=== PATIENT | female | born 1940 | race Caucasian/White ===

== ENCOUNTER 2022-09-10 16:03 | Outpatient (REF) | payer MEDICARE, SELFPAY ==
[2022-09-10 19:00] LABS: Bilirubin Negative (Negative); Blood Trace-intact (Negative); Clarity Clear (Clear); Glucose Negative (Negative); Ketones Negative (Negative); Leukocyte Esterase Small (Negative); Nitrite Negative (Negative); Urobilinogen 0.2 EU/dL (Up TO 0.2); pH 5.5 (5-8)
[2022-09-10 19:07] LABS: Bacteria Negative HPF (Negative); C & S Indicated? No; Casts Negative LPF (Negative); Crystals Negative HPF (Negative); Epithelial Cells Rare HPF (Negative); Mucus Negative (Negative); Other Cells Negative (Negative); WBC 0-2 HPF (0-5)
== END 2022-09-10 16:04 | disposition home or self-care (01) ==
LOC: NCHCN 16:03
PROVIDERS: PCP Physician Assistant; Visit Provider Internal Medicine
DX: N17.9 Acute kidney failure, unspecified (principal)
CPT/HCPCS: 81003; 81015

== ENCOUNTER 2022-10-08 17:29 | Outpatient (REF) | payer MEDICARE, SELFPAY ==
[2022-10-08 19:30] LABS: Bilirubin Negative (Negative); Blood Large (Negative); Clarity Cloudy (Clear); Glucose Negative (Negative); Ketones Negative (Negative); Leukocyte Esterase Large (Negative); Nitrite Positive (Negative); Urobilinogen 0.2 mg/dL (Up to 0.2)
[2022-10-08 19:43] LABS: C & S Indicated? C&S Done As Ordered; WBC >50 HPF (0-5)
== END 2022-10-08 17:30 | disposition home or self-care (01) ==
LOC: NCHCN 17:29
PROVIDERS: PCP Physician Assistant; Visit Provider Nurse Practitioner Family
DX: R30.0 Dysuria (principal)
CPT/HCPCS: 87077; 81003; 81015; 87086; 87186

== ENCOUNTER 2022-10-10 09:34 | Outpatient (REF) | payer MEDICARE, SELFPAY ==
[2022-10-10 09:16] LABS: Abs Immature Grans 0.07 10^3/uL (0.0-0.06); Absolute Basophil Count 0.06 10^3/uL (0.0-0.2); Absolute Eosinophil Count 0.33 10^3/uL (0.0-0.7); Absolute Lymphocyte Count 1.07 10^3/uL (1.2-3.4); Absolute Monocyte Count 0.98 10^3/uL (0.1-0.8); Absolute Neutrophil Count 7.62 10^3/uL (1.2-6.7); Basophils % 0.6; Eosinophils % 3.3; HCT 28.1 % (36.0-46.0); Immature Grans % 0.7; Lymphocytes % 10.6; MCV 94 fL (80-95); MPV 10.2 fL (8.0-11.0); Monocytes % 9.7; Neutrophils % 75.1; Platelet Count 242 10^3/uL (130-400); RDW 16.8 % (11.7-14.6); RDW-SD 53.4 fL; WBC 10.13 10^3/uL (4.4-10.8)
[2022-10-10 09:30] LABS: ALT 26 U/L (14-59); AST 25 U/L (15-37); Albumin 2.9 g/dL (3.4-5.0); Alkaline Phosphatase 164 U/L (46-116); Anion Gap 7.7 mmol/L (3-11); BUN 16 mg/dL (7-18); Bilirubin, Total 0.4 mg/dL (0.2-1.0); CO2 27.3 mmol/L (21.0-32.0); CREATININE 0.9 mg/dL (0.55-1.02); Calcium 9.1 mg/dL (8.5-10.1); Chloride 106 mmol/L (98-107); Estimated GFR 63.43 (mL/min/1.73m2); Glucose 117 mg/dL (74-106); Magnesium 1.8 mg/dL (1.8-2.4); PHOSPHORUS 3.4 mg/dL (2.6-4.7); Potassium 4.1 mmol/L (3.5-5.1); Sodium 141 mmol/L (136-145); Total Protein 5.9 g/dL (6.4-8.2); Uric Acid 3.7 mg/dL (2.6-6.0)
[2022-10-10 10:25] LABS: LDH 324 U/L (81-234)
== END 2022-10-10 09:35 | disposition home or self-care (01) ==
LOC: LBN 09:34
PROVIDERS: PCP Physician Assistant; Visit Provider Internal Medicine Hematology & Oncology
DX: C82.3 Follicular lymphoma grade IIIa (principal)
CPT/HCPCS: 80053; 83615; 83735; 84100; 84550; 85025

== ENCOUNTER 2022-10-15 04:40 | Emergency (ER) | payer MEDICARE, SELFPAY ==
[2022-10-15] VITALS (223 sets, daily range): BP systolic 71–152; BP diastolic 35–116; PULSE 50–148; RESP 14–53; TEMP 37.1–40; O2SAT 68–100
--- NOTE | 2022-10-15 04:45 | RT.EKG_ITS ---
APPROVED REPORT Exam: Resting ECG Reason for Exam: chest pain Patient Location: E HR:101 bpm ECG Measurements Heart Rate 101 AXIS GA 141 P 14 QRSd 139 QRS -66 QT 362 T 18 QTc 469 Conclusion Fast sinus arrhythmia...V-rate 86-123, mean> 99 RBBB and LAFB...QRSd >120mS, axis(-40,240) Right bundle branch block and a rate of 101 with left axis deviation?bifascicular block. No ST segment abnormalities. Baseline difficult to interpret in V4 and V5. T wave inversion in V3. Alexis red to prior dated last month in the [facility] [place] [place] medical record no acute injury pattern.
--- NOTE | 2022-10-15 04:46 | W.ED.GENAD ---
Discharge Plan Discharge Details Chief Complaint: Chest Pain Clinical Impression: Myalgia, Chest pain, unspecified, Acute UTI Primary Care Provider: Evan Skelton ED Provider: Charles Tinoco Medical Decision Making In this chronically ill patient with follicular lymphoma I am concerned for progression of her known intraperitoneal mass versus progression of her known carcinomatosis versus pulmonary embolism versus ACS. Her ECG is nonischemic. She has had no fevers to suggest neutropenic fever and she is not hypotensive nor tachycardic at the moment so we will defer antibiotics, cultures, and lactate. Given patient's right lower quadrant tenderness appendicitis is also in the differential. No reported recent trauma however the patient is certainly at increased risk for pathological fracture given history of malignancy. Given no fever and no rebound nor guarding on abdominal exam I am not concerned for spontaneous bacterial peritonitis although the patient certainly could have ascites given known malignancy. Will attempt to obtain urinalysis from nephrostomy tubes given reported recent diagnosis of urinary tract infection. Her ECG is not low voltage to suggest tamponade. Chest wall site appears to be healing well with no signs of infection. Similarly nephrostomy sites nontender. Will treat nausea with ondansetron and pain with low-dose fentanyl. Will provide patient with a 250 cc bolus as she had a reassuring EF last with that at [facility] [place]. She has no rash on her abdomen to suggest zoster. Given that she has chest and abdominal discomfort my suspicion is low for ovarian torsion although CT will be useful to assess the extent of her unknown retroperitoneal mass. Given her history of Rituxan reaction I considered Ling-Toney's and TEM however the patient had no macular rash nor any obvious bullae nor mucosal involvement. On CT scan performed last month patient had no cholelithiasis. If patient has no acute abnormalities on her CT scan we will consider right upper quadrant formal ultrasound to assess for acalculous cholecystitis. No pain out of proportion to suggest necrotizing soft tissue infection. Given recent chemotherapy will assess LDH and uric acid levels to evaluate for tumor lysis syndrome.Also in the differential is hypercalcemia of malignancy. She does not appear plethoric to suggest SVC syndrome. 6:30 AM CBC is significant for leukopenia with white blood cell count of 1.51K, normocytic anemia slightly worse compared to prior with hemoglobin of 8.6 and new thrombocytopenia with platelets of 97 K. Urinalysis showing positive nitrites. LDH elevated but slightly improved compared to prior from last week. Normal uric acid. No MILKA. No hypercalcium. 7 AM Patient had nitrite positive urinalysis. She reported last week that she had had symptoms of dysuria and frequency when she had a positive urinalysis performed at [facility]. Given her immunocompromise state will treat her with ceftriaxone at 2 g. We will also check a lactate and draw 2 sets of blood cultures and sign patient out to the oncoming daytime provider. I have asked health director community health nursing Pippa to attempt to obtain urine culture results from [facility]. 7:15 AM Patient was recently treated with Macrobid. I met with the patient after she required an additional dose of fentanyl for analgesia. Given that she is requiring multiple rounds of parenteral medications for pain I told the patient and her family that I anticipate that she would likely require hospitalization. At the moment there are not beds available. Patient has been hospitalized and has received care in the past at [facility]. I also advised the patient that if her CT was reassuring against any acute processes and if her pain was able to be controlled on oral medications it would not be unreasonable to discharge her home with outpatient heme-onc follow-up. We will defer this ultimate disposition [facility], Dr. Esposito, pending his reassessment after my signout. Chronic conditions affecting the care of the patient: Lymphoma History obtained from an outside historian: Additional history from the patient's daughter External record review: Chart review at [facility] [place] Diagnostic interpretations performed by me: [Per my independent interpretation EKG shows:] Right bundle branch block and a rate of 101 with left axis deviation??bifascicular block. No ST segment abnormalities. Baseline difficult to interpret in V4 and V5. T wave inversion in V3. Compared to prior dated last month in the [facility] [place] [facility] medical record no acute injury pattern. Medications: Fentanyl and ondansetron Social determinants of health affecting disposition: N/A Management discussed with: Oncoming daytime ED provider Treatment/interventions considered: Initial broad-spectrum antibiotics deferred based on vital signs Response to therapies provided: Improved pain and nausea status post fentanyl and ondansetron HPI General Date/Time Provider Initiated Documentation: 10/15/22 04:45. HPI Narrative: This is an 81-year-old female with a history of follicular lymphoma. Per hematology notes patient has bulky disease with large retroperitoneal mass, ureteral obstruction hydro and carcinomatosis. She completed a mini cycle of R CHOP last month while inpatient. She had nephrostomy stents placed in the setting of hydronephrosis. She had escalating doses of RCHOP on 10/10 and 10/11. She reportedly tolerated these and felt well earlier in the day yesterday. This evening however she began having pain in her chest and in the right side of her abdomen. This began at 11 PM. She reported that she had some nausea cough and some shortness of breath. She takes senna and has had 3 episodes of diarrhea today. She said that she had an adverse reaction to Rituxan for which subsequent infusions were slowed. She lives in [place]. She receives care at [facility]. She has never had a PE nor DVT. She was originally diagnosed with follicular lymphoma 10 weeks ago. She had a urinary tract infection last week that was treated with antibiotics. She cannot recall the name of the antibiotics. She quit smoking 45 years ago. PFSH All Active Problems (Updated 10/15/22 @ 07:26 by Charles Tinoco MD) Myalgia (Acute) Chest pain, unspecified (Acute) Acute UTI (Acute) Social History Smoking/Tobacco Use Status: Former Tobacco Use Smoking risk assessment performed?: Yes Substance use type: does not use Exam Narrative Exam Narrative: General: Chronically ill-appearing in no acute distress speaking in complete sentences. Head: Normocephalic, atraumatic Ear, nose, mouth, throat: Grossly normal inspection. Normal voice, handling secretions normally. Neck: Trachea midline. Cardiovascular: Well-perfused distal extremities. Systolic ejection murmur left sternal border. Chest wall: Port site appears to be healing well. Respiratory: Nonlabored respiration. Clear lungs bilaterally. Gastrointestinal: Nondistended abdomen. Generalized abdominal tenderness right greater than left primarily in the lower quadrant. No rebound. No guarding. Nontender bilateral nephrostomy tubes draining clear yellow urine. Musculoskeletal: No edema. Moving all 4 extremities spontaneously. Skin: Mildly jaundiced appearing. No acute rash. Neurologic: Alert and appropriate, no apparent acute deficits. Psychiatric: Mood and manner are appropriate. Grooming and personal hygiene are appropriate.
--- NOTE | 2022-10-15 05:21 | DI.CT_ITS ---
Exam(s) CT CHEST PE ABD PELVIS W EXAM: CT CHEST PE ABD PELVIS W CLINICAL HISTORY: Shortness of breath chest pain. TECHNIQUE: Imaging Protocol: Axial CT angiography was performed with multi-slice acquisition and mu lti-planar and/or 3D reconstructions. CONTRAST MATERIAL: Intravenous: Omnipaque 350contrast volume:100 mL COMPARISON: No exams were available for comparison FINDINGS: The examination is limited due to patient motion artifact. CHEST: Tracheobronchial tree: Patent where visualized. Pulmonary parenchyma: There are small bilateral pleural effusions, right greater than left with subja cent infiltrates which may represent atelectasis or pneumonia. No architectural distortion. Pulmonary Arteries: No evidence of filling defect to suggest pulmonary emboli. Mediastinum and Dorie: No dominant adenopathy or fluid collection. The esophagus is unremarkable. Visualized thyroid gland: Unremarkable. Pleura: No pneumothorax. Heart: The heart is not dilated. No coronary artery calcifications are seen. No pericardial effusion. Aorta: The ascending thoracic aorta measures 4.2 x 3.8 cm. No evidence of dissection. Atheroscleros is is present. Bones: Within normal limits for the patient's age. Soft tissues: Unremarkable. Tubes, Catheters, and Lines: There is a Port-A-Cath in place. ABDOMEN: Liver: Normal density. Simple cysts are seen in the left and right lobes of the liver. No suspicious hepatic masses are seen. Portal, Superior Mesenteric, and Splenic Veins: Unremarkable. Gallbladder and Biliary Tract: No radiodense calculus or dilation. Pancreas: Normal density, no abnormal calcifications or inflammatory process. Spleen: Normal. Adrenals: No masses seen. Kidneys: Normal size, contour and axis. No radiodense stones or obstructive uropathy. There is a 0.7 cm simple cyst in the right kidney. No follow-up is recommended. There are bilateral nephrostomy tu bes. No hydronephrosis. Abdominal Aorta: Abdominal portion non-dilated. Atherosclerosis is present. Bowel: There is diverticulosis in the colon but no evidence of acute diverticulitis. There is no laury dence of bowel obstruction. No evidence of appendicitis is present. Peritoneal Cavity: There is marked soft tissue in the retroperitoneum beginning at the level of the r enal arteries and extending into the pelvis. There is soft tissue seen in the mesentery. The findin gs are suspicious for adenopathy. The soft tissue encircles the aorta and IVC and appears to encase the ureters bilaterally. No free air. Perihepatic, perisplenic and pelvic ascites is present. Lymph Nodes: Please see the above discussion under peritoneal cavity. Bones: Within normal limits for the patient's age. There is a right convex lumbar scoliosis. Soft Tissues: Unremarkable. PELVIS: Bladder: Symmetric distention, no gross wall thickening. Reproductive Organs: Unremarkable as visualized. Lymph Nodes: Within normal limits. Bones: Within normal limits. IMPRESSION: 1. No evidence of a pulmonary embolus. 2. Ascending thoracic aortic aneurysm. 3. Bilateral pleural effusions and subjacent infiltrates which may represent atelectasis or pneumonia . 4. Retroperitoneal, pelvic and mesenteric soft tissue likely reflecting adenopathy. Lymphoma should be considered. Please correlate with patient's clinical history. 5. Abdominal pelvic ascites. 6. Bilateral nephrostomy tubes. RADIATION DOSE DELIVERED: 1,111.9mGy.cm Total DLP 1,111.9mGy.cm Total DLP DATA REPOSITORY: All CT scans at this facility are submitted to the National Radiology Data Registry (NRDR) Dose Index Registry (DIR) with the [employer] ([employer]). RADIATION OPTIMIZATION: All CT scans at this facility use at least one of these dose optimization te chniques: automated exposure control; mA and/or kV adjustment per patient size (includes targeted exa ms where dose is matched to clinical indication); or iterative reconstruction.
--- NOTE | 2022-10-15 05:22 | NUR.NOTE ---
Nursing Note: pt states she is allergic to something but doesn't know the name. Pt does not know what medications she is currently on and does not have a list.
[2022-10-15] MEDS: Ondansetron 4 MG/2 ML VIAL IVP (05:44)
[2022-10-15] MEDS: fentaNYL 100 MCG/2 ML VIAL 25 MCG IVP ×2 (05:44→06:58)
[2022-10-15 05:48] LABS: HCT 26.4 % (36.0-46.0); HGB 8.6 g/dL (11.2-15.7); MCH 30.3 pg (27.0-33.0); MCHC 32.6 % (32.0-36.0); MCV 93 fL (80-95); MPV 10.6 fL (8.0-11.0); RBC 2.84 10^6/uL (3.93-5.22); RDW 17.6 % (11.7-14.6); RDW-SD 58.9 fL
[2022-10-15] MEDS: Normal Saline 500 ML 250 ML IV (05:55)
[2022-10-15 06:15] LABS: WBC 1.51 10^3/uL (4.4-10.8)
[2022-10-15 06:22] LABS: Bilirubin Negative (Negative); Blood Large (Negative); Clarity Sl Cloudy (Clear); Glucose Negative (Negative); Ketones Negative (Negative); Leukocyte Esterase Small (Negative); Nitrite Positive (Negative); Urobilinogen 0.2 mg/dL (Up to 0.2); pH 7.5 (5-8)
[2022-10-15 06:25] LABS: ALT 138 U/L (14-59); AST 69 U/L (15-37); Albumin 2.8 g/dL (3.4-5.0); Alkaline Phosphatase 186 U/L (46-116); Anion Gap 10.4 mmol/L (3-11); BUN 26 mg/dL (7-18); CO2 25.6 mmol/L (21.0-32.0); CREATININE 0.9 mg/dL (0.55-1.02); Calcium 8.5 mg/dL (8.5-10.1); Chloride 104 mmol/L (98-107); Estimated GFR 63.43 (mL/min/1.73m2); Glucose 121 mg/dL (74-106); LDH 253 U/L (81-234); Potassium 3.5 mmol/L (3.5-5.1); Sodium 140 mmol/L (136-145); Total Protein 5.4 g/dL (6.4-8.2); Uric Acid 2.9 mg/dL (2.6-6.0)
[2022-10-15 06:27] LABS: Platelet Count 97 10^3/uL (130-400)
[2022-10-15 06:28] LABS: Troponin I < 50 ng/L (<or=60)
[2022-10-15 06:30] LABS: Bacteria Moderate HPF (Negative); C & S Indicated? Yes; Casts Negative LPF (Negative); Crystals Negative HPF (Negative); Epithelial Cells Few HPF (Negative); Mucus Moderate (Negative); RBC 20-50 HPF (0-2)
[2022-10-15] MEDS: Omnipaque 350 MG/ML 100 ML BTL IJ (06:37)
[2022-10-15] MEDS: Normal Saline - Diluent 50 ML VIAL IJ (06:39)
--- NOTE | 2022-10-15 07:33 | DI.VRAD_ITS ---
PROCEDURE INFORMATION: Exam: CTA Chest With Contrast Exam date and time: 10/15/2022 6:38 AM Age: 82 years old Clinical indication: Abdominal pain; Localized; Right upper quadrant (ruq); Shortness of breath; On breathing; Patient HX: Patient has power port used for injection. Diagnosed with lymphoma TECHNIQUE: Imaging protocol: Computed tomographic angiography of the chest with contrast. 3D rendering (Not supervised by radiologist): MIP and/or 3D reconstructed images were created by the technologist. Radiation optimization: All CT scans at this facility use at least one of these dose optimization techniques: automated exposure control; mA and/or kV adjustment per patient size (includes targeted exams where dose is matched to clinical indication); or iterative reconstruction. Contrast material: OMNIPAQUE 350; Contrast volume: 100 ml; Contrast route: INTRAVENOUS (IV); COMPARISON: No relevant prior studies available. FINDINGS: Limitations: Motion artifact degrades image quality. Tubes, catheters and devices: Right chest wall port catheter. Pulmonary arteries: No pulmonary embolus is appreciated. Aorta: 4.3 cm ascending aortic aneurysm. Arterial calcifications. Lungs: Atelectasis/scarring at the lung bases. Pleural spaces: Moderate right pleural effusion. Trace left pleural effusion. Heart: No pericardial effusion. Lymph nodes: Mediastinal lymphadenopathy. Bones/joints: No acute pertinent abnormality seen. Soft tissues: No acute pertinent abnormality seen. IMPRESSION: 1. Pleural effusions. 2. Ascending aortic aneurysm. 3. Nonacute findings as outlined above. 4. Additional studies dictated separately. PROCEDURE INFORMATION: Exam: CT Abdomen And Pelvis With Contrast Exam date and time: 10/15/2022 6:38 AM Age: 82 years old Clinical indication: Abdominal pain; Localized; Right upper quadrant (ruq); Shortness of breath; On breathing; Patient HX: Patient has power port used for injection. Diagnosed with lymphoma TECHNIQUE: Imaging protocol: Computed tomography of the abdomen and pelvis with contrast. Radiation optimization: All CT scans at this facility use at least one of these dose optimization techniques: automated exposure control; mA and/or kV adjustment per patient size (includes targeted exams where dose is matched to clinical indication); or iterative reconstruction. Contrast material: OMNIPAQUE 350; Contrast route: INTRAVENOUS (IV); COMPARISON: No relevant prior studies available. FINDINGS: Tubes, catheters and devices: Bilateral percutaneous nephrostomies. Lungs: CT scan of the chest dictated separately. Liver: 1.5 cm hypodense lesion in the left hepatic lobe and 7 mm lesion in the right hepatic lobe, indeterminate on this examination. Consider nonemergent follow-up. Mild periportal edema, nonspecific. Additional hypodensities in the liver too small to characterize on CT. Gallbladder and bile ducts: No radiodense gallbladder calculi seen. Pancreas: Stranding in the peripancreatic fat. Spleen: No splenomegaly. Adrenal glands: Adrenal thickening bilaterally. Kidneys and ureters: Low attenuation lesion in the right kidney too small to accurately characterize on CT. No hydronephrosis. Areas of faintly decreased enhancement in both kidneys. Stomach and bowel: No intestinal obstruction is evident. Colonic diverticulosis. Evaluation for diverticulitis limited due to adjacent fluid. Appendix: No evidence of appendicitis. Intraperitoneal space: Moderate free fluid in the abdomen and pelvis. Extensive abnormal soft tissue density in the mesentery, likely reflecting neoplastic involvement. Vasculature: Arterial calcifications. Lymph nodes: Confluent masslike soft tissue density in the retroperitoneum and extending into the pelvis, likely lymphadenopathy and/or neoplasm. Nonspecific mesenteric lymph nodes. Urinary bladder: Urinary bladder appears mildly thickened, but commensurate with incomplete distension. Reproductive: No acute findings. Bones/joints: No pertinent acute abnormality seen. Soft tissues: No pertinent acute abnormality seen. IMPRESSION: 1. Retroperitoneal and pelvic masslike soft tissue density consistent with patient's known lymphoma. 2. Moderate ascites. 3. Linear areas of faintly decreased enhancement in both kidneys, most likely technical but cannot exclude pyelonephritis. Please correlate clinically. 4. Stranding in the peripancreatic fat, most likely secondary to more more generalized edema. Pancreatitis cannot be excluded in this setting and clinical correlation is advised. 5. Additional findings as above. 6. Additional Dictated and Authenticated by: Anais Wu MD. Ordering:BRUCE Soto MD
[2022-10-15] MEDS: fentaNYL 100 MCG/2 ML VIAL 50 MCG IVP (07:41)
[2022-10-15] MEDS: cefTRIAXone 2 GM/50 ML BAG IVPB (07:56)
[2022-10-15 07:57] LABS: Lactate 5.3 mmol/L (0.6-1.4)
[2022-10-15 08:09] LABS: Lipase 18 U/L (16-77)
[2022-10-15 08:39] LABS: Bands % 8
[2022-10-15 08:40] LABS: Absolute Lymphocyte Count 0.12 10^3/uL (1.2-3.4); Absolute Neutrophil Count 1.39 10^3/uL (1.2-6.7); Diff Comment Manual Differential
[2022-10-15 08:43] LABS: Poikilocytes 1+
[2022-10-15] MEDS: Normal Saline 500 ML IV (08:50)
--- NOTE | 2022-10-15 09:15 | ED.PROG_ITS ---
Date of service: 10/15/22 Time of Service: 09:15 Medical Decision Making Care was signed out by Dr. Tinoco, please see his documentation regarding initial ED presentation course. Plan at signout was to follow-up on CT imaging and reassess patient for disposition. CBC differential pending. Labs reviewed: Lactate 5.3. Patient has a WBC count of 1.5. This is a significant decline from 5 days ago when level was 10.Absolute neutrophil count is 1.39. Urinalysis is concerning for persistent UTI despite recent treatment course of Macrobid. CT of the chest was interpreted by radiology: IMPRESSION: 1. ? Pleural effusions. 2. ? Ascending aortic aneurysm. 3. ? Nonacute findings as outlined above. 4. ? Additional studies dictated separately. CT of the abdomen and pelvis interpreted by radiology: IMPRESSION: 1. ? Retroperitoneal and pelvic masslike soft tissue density consistent with patient's known lymphoma. 2. ? Moderate ascites. 3. ? Linear areas of faintly decreased enhancement in both kidneys, most likely technical but cannot exclude pyelonephritis. Please correlate clinically. 4. ? Stranding in the peripancreatic fat, most likely secondary to more more generalized edema. Pancreatitis cannot be excluded in this setting and clinical correlation is advised. 5. ? Additional findings as above. Nursing noted significant and rather sudden decline in status. I immediately responded to evaluate the patient. Patient hypoxic in the 70s to 80s on 4L nasal cannula oxygen. Patient tachycardic and hypotensive. Febrile 103F rectal. Nonrebreather high flow oxygen applied and oxygen saturation improved to low 90s. Patient immediately moved to resuscitation room #1. 2 IVs established in addition to her port accessed that was previously established. Patient to receive IV fluid resuscitation. She has already been given 500 mL of crystalloid. She is currently receiving second 500 mL bolus. I am concerned with patient's current mental status. She has had a significant decline here. She does seem to be improving slightly with the oxygen. We will continue to monitor closely. I had a conversation with the patient's daughter and regarding CODE STATUS and they acknowledge patient is full code and would desire invasive interventions. I suspect patient has urosepsis vs consider SBP. Patient has received ceftriaxone IV. I will add additional empiric coverage with vancomycin IV. Patient is currently febrile, I will give acetaminophen 1 g IV. [place] [facility] [place] transfer and awaiting callback. [phone] --I spoke with Dr. Luque, [facility] [place], discussed ED presentation and course, he recommends continuing IV fluid resuscitation and initiating Levophed if patient does not respond. He recommends adding Zosyn to current antibiotics. Dr. Fonseca to accept patient in transfer. 1020 --patient was reassessed multiple times. She is mentating much better, maintaining airway. She remains tachypneic but saturating well on nonrebreather at 10 L. Blood pressure and heart rate improved with IV fluid resuscitation. Lab Data Lab results reviewed: Yes I reviewed the patient's lab results. Labs: 10/15/22 07:31 Blood Blood Culture - Pending 10/15/22 07:47 Blood Blood Culture - Pending 10/15/22 05:50 Urine - Reflex from Ua Urine Culture - Pending Laboratory Tests Range/Units 10/15/22 10/15/22 10/15/22 05:35 05:35 05:35 WBC (4.4-10.8) 10^3/uL 1.51 L* RBC (3.93-5.22) 10^6/uL 2.84 L Hgb (11.2-15.7) g/dL 8.6 L Hct (36.0-46.0) % 26.4 L MCV (80-95) fL 93 MCH (27.0-33.0) pg 30.3 MCHC (32.0-36.0) % 32.6 RDW (11.7-14.6) % 17.6 H Plt Count (130-400) 10^3/uL 97 L MPV (8.0-11.0) fL 10.6 Immature Gran % 0.0 Neutrophils % 84.0 Band Neutrophils % 8 Lymphocytes % 8.0 Atypical Lymphs % Monocytes % 0.0 Eosinophils % 0.0 Basophils % 0.0 Metamyelocytes % Myelocytes % Promyelocytes % Other Cells % Absolute Neutrophils (1.2-6.7) 10^3/uL 1.39 Absolute Lymphocytes (1.2-3.4) 10^3/uL 0.12 L Absolute Monocytes (0.1-0.8) 10^3/uL 0.00 L Absolute Eosinophils (0.0-0.7) 10^3/uL 0.00 Absolute Basophils (0.0-0.2) 10^3/uL 0.00 RBC Morphology See Below Polychromasia Hypochromasia Poikilocytosis 1+ Basophilic Stippling Anisocytosis Microcytosis Macrocytosis Spherocytes Tear Drop Cells Ovalocytes Stomatocytes Crawley-Gorman Bodies [place]rtanna Cells/Echinocytes Acanthocytes (Spur) Schistocytes VBG Lactate (0.6-1.4) mmol/L Sodium Cancelled 140 Potassium Cancelled 3.5 Chloride Cancelled 104 Carbon Dioxide Cancelled 25.6 Anion Gap Cancelled 10.4 BUN Cancelled 26 H Creatinine Cancelled 0.9 Est GFR (CKD-EPI 2020) Cancelled 63.43 Glucose Cancelled 121 H Uric Acid (2.6-6.0) mg/dL 2.9 Calcium Cancelled 8.5 Total Bilirubin (0.2-1.0) mg/dL 1.0 AST (15-37) U/L 69 H ALT (14-59) U/L 138 H Alkaline Phosphatase (46-116) U/L 186 H Lactate Dehydrogenase (81-234) U/L 253 H Troponin I (<or=60) ng/L < 50 Total Protein (6.4-8.2) g/dL 5.4 L Albumin (3.4-5.0) g/dL 2.8 L Lipase (16-77) U/L Urine Color (Yellow) Urine Clarity (Clear) Urine pH (5-8) Ur Specific State Center (1.005-1.025) Urine Protein (Negative) mg/dL Urine Ketones (Negative) mg/dL Urine Blood (Negative) Urine Nitrite (Negative) Urine Bilirubin (Negative) Urine Urobilinogen (Up to 0.2) mg/dL Ur Leukocyte Esterase (Negative) Urine RBC (0-2) HPF Urine WBC (0-5) HPF Ur Epithelial Cells (Negative) HPF Urine Crystals (Negative) HPF Urine Bacteria (Negative) HPF Urine Casts (Negative) LPF Urine Mucus (Negative) Ur Culture Indicated? Urine Glucose (Negative) mg/dL Range/Units 10/15/22 10/15/22 10/15/22 05:50 07:39 07:47 WBC (4.4-10.8) 10^3/uL RBC (3.93-5.22) 10^6/uL Hgb (11.2-15.7) g/dL Hct (36.0-46.0) % MCV (80-95) fL MCH (27.0-33.0) pg MCHC (32.0-36.0) % RDW (11.7-14.6) % Plt Count (130-400) 10^3/uL MPV (8.0-11.0) fL Immature Gran % Cancelled Neutrophils % Cancelled Band Neutrophils % Cancelled Lymphocytes % Cancelled Atypical Lymphs % Cancelled Monocytes % Cancelled Eosinophils % Cancelled Basophils % Cancelled Metamyelocytes % Cancelled Myelocytes % Cancelled Promyelocytes % Cancelled Other Cells % Cancelled Absolute Neutrophils (1.2-6.7) 10^3/uL Cancelled Absolute Lymphocytes (1.2-3.4) 10^3/uL Cancelled Absolute Monocytes (0.1-0.8) 10^3/uL Cancelled Absolute Eosinophils (0.0-0.7) 10^3/uL Cancelled Absolute Basophils (0.0-0.2) 10^3/uL Cancelled RBC Morphology Cancelled Polychromasia Cancelled Hypochromasia Cancelled Poikilocytosis Cancelled Basophilic Stippling Cancelled Anisocytosis Cancelled Microcytosis Cancelled Macrocytosis Cancelled Spherocytes Cancelled Tear Drop Cells Cancelled Ovalocytes Cancelled Stomatocytes Cancelled Crawley-Gorman Bodies Cancelled [place] Cells/Echinocytes Cancelled Acanthocytes (Spur) Cancelled Schistocytes Cancelled VBG Lactate (0.6-1.4) mmol/L 5.3 H* Sodium Potassium Chloride Carbon Dioxide Anion Gap BUN Creatinine Est GFR (CKD-EPI 2020) Glucose Uric Acid (2.6-6.0) mg/dL Calcium Total Bilirubin (0.2-1.0) mg/dL AST (15-37) U/L ALT (14-59) U/L Alkaline Phosphatase (46-116) U/L Lactate Dehydrogenase (81-234) U/L Troponin I (<or=60) ng/L Total Protein (6.4-8.2) g/dL Albumin (3.4-5.0) g/dL Lipase (16-77) U/L Urine Color (Yellow) Yellow Urine Clarity (Clear) Sl Cloudy Urine pH (5-8) 7.5 Ur Specific State Center (1.005-1.025) 1.020 Urine Protein (Negative) mg/dL >=300 H Urine Ketones (Negative) mg/dL Negative Urine Blood (Negative) Large H Urine Nitrite (Negative) Positive H Urine Bilirubin (Negative) Negative Urine Urobilinogen (Up to 0.2) mg/dL 0.2 Ur Leukocyte Esterase (Negative) Small H Urine RBC (0-2) HPF 20-50 H Urine WBC (0-5) HPF 10-20 H Ur Epithelial Cells (Negative) HPF Few Urine Crystals (Negative) HPF Negative Urine Bacteria (Negative) HPF Moderate Urine Casts (Negative) LPF Negative Urine Mucus (Negative) Moderate Ur Culture Indicated? Yes Urine Glucose (Negative) mg/dL Negative Range/Units 10/15/22 10/15/22 07:47 08:45 WBC (4.4-10.8) 10^3/uL RBC (3.93-5.22) 10^6/uL Hgb (11.2-15.7) g/dL Hct (36.0-46.0) % MCV (80-95) fL MCH (27.0-33.0) pg MCHC (32.0-36.0) % RDW (11.7-14.6) % Plt Count (130-400) 10^3/uL MPV (8.0-11.0) fL Immature Gran % Neutrophils % Band Neutrophils % Lymphocytes % Atypical Lymphs % Monocytes % Eosinophils % Basophils % Metamyelocytes % Myelocytes % Promyelocytes % Other Cells % Absolute Neutrophils (1.2-6.7) 10^3/uL Absolute Lymphocytes (1.2-3.4) 10^3/uL Absolute Monocytes (0.1-0.8) 10^3/uL Absolute Eosinophils (0.0-0.7) 10^3/uL Absolute Basophils (0.0-0.2) 10^3/uL RBC Morphology Polychromasia Hypochromasia Poikilocytosis Basophilic Stippling Anisocytosis Microcytosis Macrocytosis Spherocytes Tear Drop Cells Ovalocytes Stomatocytes Crawley-Gorman Bodies Maame Cells/Echinocytes Acanthocytes (Spur) Schistocytes VBG Lactate (0.6-1.4) mmol/L Sodium Potassium Chloride Carbon Dioxide Anion Gap BUN Creatinine Est GFR (CKD-EPI 2020) Glucose Uric Acid (2.6-6.0) mg/dL Calcium Total Bilirubin (0.2-1.0) mg/dL AST (15-37) U/L ALT (14-59) U/L Alkaline Phosphatase (46-116) U/L Lactate Dehydrogenase (81-234) U/L Troponin I (<or=60) ng/L < 50 Total Protein (6.4-8.2) g/dL Albumin (3.4-5.0) g/dL Lipase (16-77) U/L 18 Urine Color (Yellow) Urine Clarity (Clear) Urine pH (5-8) Ur Specific State Center (1.005-1.025) Urine Protein (Negative) mg/dL Urine Ketones (Negative) mg/dL Urine Blood (Negative) Urine Nitrite (Negative) Urine Bilirubin (Negative) Urine Urobilinogen (Up to 0.2) mg/dL Ur Leukocyte Esterase (Negative) Urine RBC (0-2) HPF Urine WBC (0-5) HPF Ur Epithelial Cells (Negative) HPF Urine Crystals (Negative) HPF Urine Bacteria (Negative) HPF Urine Casts (Negative) LPF Urine Mucus (Negative) Ur Culture Indicated? Urine Glucose (Negative) mg/dL Critical Care Time Critical Care Time Critical Care Time: Yes Total Critical Care Time: 85 Attestation: I spent greater than 85 minutes addressing this patient's immediate life threats. Please see MDM section of note. This time was spent engaged in work directly related to the patient's care, exclusive of separate procedures, and failure to initiate these interventions would have likely resulted in clinically significant or life threatening deterioration in the patient's condition. Sign Out Sign Out Data: Sign Out Comment: Follow-up on CT results, repeat troponin and clinical reass essment on this oncology patient 5 days status post chemotherapy with chills and myalgias. Last updated by Charles Tinoco MD at 10/15/22 07:28 Discharge Plan Discharge Details Chief Complaint: Chest Pain Clinical Impression: Myalgia, Chest pain, unspecified, Acute UTI Primary Care Provider: Evan Skelton ED Provider: Sandro Esposito Home Meds and New Rx's Prescriptions: No Action trazodone 50 mg Tablet 25 mg PO QHS PRN acyclovir 400 mg Tablet 400 mg PO BID ascorbic acid (vitamin C) [Vitamin C] 500 mg Tablet 500 mg PO DAILY allopurinol 300 mg Tablet 300 mg PO DAILY ondansetron 4 mg Tablet,Disintegrating 4 mg PO Q8H Discharge Data Discharge Date/Time-TO BE ENTERED AT DEPARTURE: 10/15/22 11:53
[2022-10-15 09:16] LABS: Troponin I < 50 ng/L (<or=60)
[2022-10-15] MEDS: Lactated Ringers 1,000 ML 1000 ML IV ×2 (09:23→11:08)
[2022-10-15] MEDS: ACETAMINOPHEN 1,000 MG/100 ML BTL 400 MG IVPB (09:23)
--- NOTE | 2022-10-15 09:26 | NUR.NOTE ---
pt moved from room 6 to room 1 due to change in condition. pt began not maintaining oxygen levels, which had dropped to 77% on 2L. oxygen increased to 4L with little improvement. MD Esposito at bedside and gave verbal order for non-rebreather. NRB applied with good effect. At this point the room was changed for end-tital monitoring and 2 large bore IVs were placed. pt began to present with tachycardia into the 130's and rigors. rectal temp done at that point which showed a febrile state of 103.3f. MD Esposito made aware and ordered 1L LR and 1000mg IV tylenol. closely monitoring pt at this time.
[2022-10-15 09:46] LABS: Source Nasal/Nares
[2022-10-15] MEDS: VANCOMYCIN 1,250 MG in Normal Saline 250 ML 166.6666 MG IVPB (09:53)
[2022-10-15 10:16] LABS: COVID-19 PCR Negative (Negative)
[2022-10-15] MEDS: PIPERACILLIN/TAZO 4.5 GM in Normal Saline 100 ML IVPB (10:17)
--- NOTE | 2022-10-15 10:30 | NUR.NOTE ---
rectal temp rechecked, now 104.0f and tachycardic at 148. MD Esposito aware. no new orders
[2022-10-15] MEDS: Lactated Ringers 1,000 ML 125 ML IV (10:40)
[2022-10-15] MEDS: Norepinephrine in D5W 8 MG/250 ML BAG 5.231 MG IV (10:48)
--- NOTE | 2022-10-15 10:59 | NUR.NOTE ---
pt unable to maintain blood pressure with a MAP that is sustainable with perfusion, MD Esposito aware and ordered Levophed. Medication has been administered and awaiting results at this time. EMS at bedside awaiting transport
--- NOTE | 2022-10-15 11:53 | NUR.NOTE ---
Able to achieve MAP above 65 prior to transfer. pt appears weak but able to mentate appropriately.
--- NOTE | 2022-10-15 18:27 | NUR.NOTE ---
Addendum entered by Pippa Horvath 10/15/22 18:31: Dr. Cross is aware. Original Note: Nursing Note: Lab called with positive aerobic blood cultures both bottles 0731, 0747 for gram negative rods in gram stain. Positive blood culture results faxed to [facility] [place] Med ICU. P [phone] F [phone]
== END 2022-10-15 11:53 ==
LOC: ER 08:58
PROVIDERS: Emergency Medicine; Emergency Provider Student in an Organized Health Care Education/Training Program; PCP Physician Assistant
DX: R07.89 Other chest pain (principal); R00.0 Tachycardia, unspecified; N39.0 Urinary tract infection, site not specified; C82.00 Follicular lymphoma grade I, unspecified site; R06.02 Shortness of breath; B96.89 Other specified bacterial agents as the cause of diseases classified elsewhere; R11.0 Nausea; D72.819 Decreased white blood cell count, unspecified; R09.02 Hypoxemia; R41.82 Altered mental status, unspecified
CPT/HCPCS: 36415; 71275; 74177; 80048; 80053; 83690; 85027; 87040; 87077; 87635; 93005; 96360; 96361; 96365; 96366; 96367; 96375; 96376; 99291; 99292; 81003; 81015; 83605; 83615; 84484; 84550; 85007; 87086; 87186; 93010; J0131; J2405; J2543; J3010; J3490

== ENCOUNTER 2022-10-31 01:43 | Outpatient (RCR) | payer MEDICARE, SELFPAY ==
[2022-10-31] MEDS: Normal Saline Flush 10 ML SYR IVP (07:27)
[2022-10-31 07:49] LABS: ALT 30 U/L (14-59); AST 18 U/L (15-37); Albumin 2.2 g/dL (3.4-5.0); Alkaline Phosphatase 215 U/L (46-116); Anion Gap 7.8 mmol/L (3-11); BUN 15 mg/dL (7-18); Bilirubin, Total 0.5 mg/dL (0.2-1.0); CO2 28.2 mmol/L (21.0-32.0); CREATININE 0.8 mg/dL (0.55-1.02); Chloride 102 mmol/L (98-107); Estimated GFR 73.06 (mL/min/1.73m2); Glucose 139 mg/dL (74-106); LDH 168 U/L (81-234); Potassium 3.8 mmol/L (3.5-5.1); Sodium 138 mmol/L (136-145); Total Protein 6.2 g/dL (6.4-8.2)
[2022-10-31 07:51] LABS: Abs Immature Grans 0.14 10^3/uL (0.0-0.06); HCT 25.7 % (36.0-46.0); HGB 8.5 g/dL (11.2-15.7); MCH 30.2 pg (27.0-33.0); MCHC 33.1 % (32.0-36.0); MCV 92 fL (80-95); MPV 9.7 fL (8.0-11.0); Platelet Count 373 10^3/uL (130-400); RBC 2.81 10^6/uL (3.93-5.22); RDW 18.2 % (11.7-14.6); RDW-SD 58.8 fL; WBC 14.11 10^3/uL (4.4-10.8)
[2022-10-31 07:55] LABS: Absolute Lymphocyte Count 0.56 10^3/uL (1.2-3.4); Absolute Monocyte Count 1.41 10^3/uL (0.1-0.8); Absolute Neutrophil Count 12.13 10^3/uL (1.2-6.7); Atypical Lymphocytes % 0; Bands % 0
[2022-10-31 07:56] LABS: Diff Comment Manual Differential; Macrocytosis 1+; Polychromasia Present
== END 2022-11-02 23:59 | disposition home or self-care (01) ==
LOC: INF 01:43
PROVIDERS: PCP Physician Assistant; Visit Provider Internal Medicine Hematology & Oncology
DX: C82.3 Follicular lymphoma grade IIIa (principal); Z45.2 Encounter for adjustment and management of vascular access device
CPT/HCPCS: 36591; 80053; 83615; 83735; 84100; 84550; 85025

== ENCOUNTER 2022-11-12 16:15 | Outpatient (REF) | payer MEDICARE, SELFPAY ==
[2022-11-12 18:44] LABS: Abs Immature Grans 0.08 10^3/uL (0.0-0.06); Absolute Basophil Count 0.04 10^3/uL (0.0-0.2); Absolute Eosinophil Count 0.36 10^3/uL (0.0-0.7); Absolute Monocyte Count 1.42 10^3/uL (0.1-0.8); Basophils % 0.3; HCT 27.3 % (36.0-46.0); HGB 8.7 g/dL (11.2-15.7); Immature Grans % 0.7; Lymphocytes % 19.8; MCH 30.5 pg (27.0-33.0); MCHC 31.9 % (32.0-36.0); MCV 96 fL (80-95); MPV 9.7 fL (8.0-11.0); Monocytes % 11.8; Neutrophils % 64.4; Platelet Count 394 10^3/uL (130-400); RBC 2.85 10^6/uL (3.93-5.22); RDW 19.4 % (11.7-14.6); RDW-SD 65.9 fL; WBC 12.05 10^3/uL (4.4-10.8)
[2022-11-12 18:45] LABS: Absolute Lymphocyte Count 2.39 10^3/uL (1.2-3.4); Absolute Neutrophil Count 7.76 10^3/uL (1.2-6.7)
[2022-11-12 18:59] LABS: ALT 27 U/L (14-59); AST 33 U/L (15-37); Albumin 2.5 g/dL (3.4-5.0); Alkaline Phosphatase 166 U/L (46-116); Anion Gap 7.5 mmol/L (3-11); BUN 12 mg/dL (7-18); Bilirubin, Total 0.4 mg/dL (0.2-1.0); CO2 28.5 mmol/L (21.0-32.0); CREATININE 0.8 mg/dL (0.55-1.02); Calcium 9.4 mg/dL (8.5-10.1); Chloride 103 mmol/L (98-107); Estimated GFR 73.06 (mL/min/1.73m2); Glucose 111 mg/dL (74-106); Potassium 4.2 mmol/L (3.5-5.1); Sodium 139 mmol/L (136-145); Total Protein 6.6 g/dL (6.4-8.2)
== END 2022-11-12 16:16 | disposition home or self-care (01) ==
LOC: NCHCN 16:15
PROVIDERS: PCP Physician Assistant; Referring Provider Internal Medicine Hematology & Oncology; Visit Provider Nurse Practitioner Family
DX: N89.8 Other specified noninflammatory disorders of vagina (principal); Z93.6 Other artificial openings of urinary tract status
CPT/HCPCS: 80053; 87077; 85025; 87086; 87186

== ENCOUNTER 2022-11-26 15:21 | Outpatient (REF) | payer MEDICARE, SELFPAY | END 2022-11-26 15:22 | disposition home or self-care (01) | LOC: NCHCN 15:21 | PROVIDERS: PCP Physician Assistant; Visit Provider Internal Medicine | DX: N13.30 Unspecified hydronephrosis (principal); Z93.6 Other artificial openings of urinary tract status; R39.89 Other symptoms and signs involving the genitourinary system | CPT/HCPCS: 87086 ==

== ENCOUNTER 2022-11-28 02:41 | Outpatient (RCR) | payer MEDICARE, SELFPAY ==
[2022-11-14] MEDS: Normal Saline Flush 10 ML SYR IVP (08:37)
[2022-11-14 08:40] LABS: Abs Immature Grans 0.08 10^3/uL (0.0-0.06); Absolute Basophil Count 0.04 10^3/uL (0.0-0.2); Absolute Lymphocyte Count 1.97 10^3/uL (1.2-3.4); Absolute Monocyte Count 1.13 10^3/uL (0.1-0.8); Basophils % 0.4; Eosinophils % 2.8; HCT 26.4 % (36.0-46.0); HGB 8.5 g/dL (11.2-15.7); Immature Grans % 0.7; Lymphocytes % 18.2; MCH 30.7 pg (27.0-33.0); MCHC 32.2 % (32.0-36.0); MCV 95 fL (80-95); MPV 8.8 fL (8.0-11.0); Monocytes % 10.4; Neutrophils % 67.5; Platelet Count 268 10^3/uL (130-400); RBC 2.77 10^6/uL (3.93-5.22); RDW-SD 68.2 fL; WBC 10.82 10^3/uL (4.4-10.8)
[2022-11-14 08:57] LABS: ALT 23 U/L (14-59); AST 22 U/L (15-37); Albumin 2.2 g/dL (3.4-5.0); Alkaline Phosphatase 151 U/L (46-116); Anion Gap 7.5 mmol/L (3-11); BUN 10 mg/dL (7-18); Bilirubin, Total 0.5 mg/dL (0.2-1.0); CO2 27.5 mmol/L (21.0-32.0); CREATININE 0.8 mg/dL (0.55-1.02); Calcium 8.9 mg/dL (8.5-10.1); Chloride 107 mmol/L (98-107); Estimated GFR 73.06 (mL/min/1.73m2); Glucose 176 mg/dL (74-106); LDH 164 U/L (81-234); Potassium 3.7 mmol/L (3.5-5.1); Sodium 142 mmol/L (136-145); Total Protein 5.9 g/dL (6.4-8.2)
== END 2022-12-02 23:59 | disposition home or self-care (01) ==
LOC: INF 02:41
PROVIDERS: PCP Physician Assistant; Visit Provider Internal Medicine Hematology & Oncology
DX: C82.3 Follicular lymphoma grade IIIa (principal); Z45.2 Encounter for adjustment and management of vascular access device
CPT/HCPCS: 36591; 80053; 83615; 85025

== ENCOUNTER 2022-12-26 04:06 | Outpatient (RCR) | payer MEDICARE, SELFPAY ==
[2022-12-05] MEDS: Normal Saline Flush 10 ML SYR IVP (12:11)
[2022-12-05] MEDS: Heparin 500 UNITS/5 ML SYRINGE IV (12:11)
[2022-12-05 12:23] LABS: HCT 29.9 % (36.0-46.0); HGB 9.6 g/dL (11.2-15.7); MCH 31.8 pg (27.0-33.0); MCHC 32.1 % (32.0-36.0); MCV 99 fL (80-95); MPV 9.9 fL (8.0-11.0); Platelet Count 105 10^3/uL (130-400); RBC 3.02 10^6/uL (3.93-5.22); RDW 18.2 % (11.7-14.6); RDW-SD 65.7 fL
[2022-12-05 12:29] LABS: Bilirubin Negative (Negative); Blood Negative (Negative); Clarity Clear (Clear); Glucose Negative (Negative); Ketones Negative (Negative); Leukocyte Esterase Small (Negative); Nitrite Negative (Negative); Specific Gravity 1.015 (1.005-1.025); Urobilinogen 0.2 mg/dL (Up to 0.2)
[2022-12-05 12:56] LABS: ALT 25 U/L (14-59); AST 24 U/L (15-37); Albumin 2.9 g/dL (3.4-5.0); Alkaline Phosphatase 267 U/L (46-116); Anion Gap 5.3 mmol/L (3-11); BUN 10 mg/dL (7-18); Bilirubin, Total 0.4 mg/dL (0.2-1.0); CO2 30.7 mmol/L (21.0-32.0); CREATININE 0.8 mg/dL (0.55-1.02); Calcium 9.2 mg/dL (8.5-10.1); Chloride 108 mmol/L (98-107); Estimated GFR 73.06 (mL/min/1.73m2); Glucose 95 mg/dL (74-106); LDH 243 U/L (81-234); Potassium 3.7 mmol/L (3.5-5.1); Sodium 144 mmol/L (136-145); Total Protein 6.4 g/dL (6.4-8.2)
[2022-12-05 13:04] LABS: Absolute Basophil Count 0.43 10^3/uL (0.0-0.2); Absolute Eosinophil Count 0.87 10^3/uL (0.0-0.7); Absolute Monocyte Count 4.33 10^3/uL (0.1-0.8); Absolute Neutrophil Count 35.09 10^3/uL (1.2-6.7); Bands % 11
[2022-12-05 13:14] LABS: Diff Comment Manual Differential
[2022-12-05 13:15] LABS: RBC Morphology Normal
[2022-12-05 13:18] LABS: WBC 43.32 10^3/uL (4.4-10.8)
[2022-12-12] MEDS: Normal Saline Flush 10 ML SYR IVP (08:29)
[2022-12-12 08:57] LABS: Bilirubin Negative (Negative); Blood Small (Negative); Clarity Clear (Clear); Glucose Negative (Negative); Ketones Negative (Negative); Leukocyte Esterase Small (Negative); Nitrite Negative (Negative); Specific Gravity 1.015 (1.005-1.025); Urobilinogen 0.2 mg/dL (Up to 0.2)
[2022-12-12 09:03] LABS: Abs Immature Grans 0.03 10^3/uL (0.0-0.06); Absolute Basophil Count 0.05 10^3/uL (0.0-0.2); Absolute Eosinophil Count 0.24 10^3/uL (0.0-0.7); Absolute Lymphocyte Count 1.11 10^3/uL (1.2-3.4); Absolute Monocyte Count 0.79 10^3/uL (0.1-0.8); Absolute Neutrophil Count 7.52 10^3/uL (1.2-6.7); Basophils % 0.5; Eosinophils % 2.5; HCT 31.1 % (36.0-46.0); HGB 9.9 g/dL (11.2-15.7); Immature Grans % 0.3; Lymphocytes % 11.4; MCH 31.8 pg (27.0-33.0); MCHC 31.8 % (32.0-36.0); MCV 100 fL (80-95); MPV 10.6 fL (8.0-11.0); Monocytes % 8.1; Neutrophils % 77.2; Platelet Count 148 10^3/uL (130-400); RBC 3.11 10^6/uL (3.93-5.22); RDW 17.3 % (11.7-14.6); RDW-SD 62.6 fL; WBC 9.74 10^3/uL (4.4-10.8)
[2022-12-12 09:26] LABS: ALT 34 U/L (14-59); AST 23 U/L (15-37); Albumin 2.8 g/dL (3.4-5.0); Alkaline Phosphatase 204 U/L (46-116); Anion Gap 5.9 mmol/L (3-11); BUN 14 mg/dL (7-18); Bilirubin, Total 0.6 mg/dL (0.2-1.0); CO2 28.1 mmol/L (21.0-32.0); CREATININE 0.7 mg/dL (0.55-1.02); Calcium 9.4 mg/dL (8.5-10.1); Chloride 108 mmol/L (98-107); Estimated GFR 85.76 (mL/min/1.73m2); Glucose 128 mg/dL (74-106); LDH 172 U/L (81-234); Potassium 3.9 mmol/L (3.5-5.1); Sodium 142 mmol/L (136-145); Total Protein 6.3 g/dL (6.4-8.2)
[2022-12-26] MEDS: Normal Saline Flush 10 ML SYR IVP (10:40)
[2022-12-26 10:45] LABS: Abs Immature Grans 0.02 10^3/uL (0.0-0.06); Absolute Basophil Count 0.04 10^3/uL (0.0-0.2); Absolute Eosinophil Count 0.52 10^3/uL (0.0-0.7); Absolute Lymphocyte Count 1.25 10^3/uL (1.2-3.4); Absolute Monocyte Count 1.07 10^3/uL (0.1-0.8); Absolute Neutrophil Count 2.55 10^3/uL (1.2-6.7); Basophils % 0.7; Eosinophils % 9.5; HCT 30.3 % (36.0-46.0); HGB 9.7 g/dL (11.2-15.7); Immature Grans % 0.4; Lymphocytes % 22.9; MCV 100 fL (80-95); MPV 9.7 fL (8.0-11.0); Monocytes % 19.6; Neutrophils % 46.9; Platelet Count 168 10^3/uL (130-400); RBC 3.03 10^6/uL (3.93-5.22); RDW 15.3 % (11.7-14.6); RDW-SD 56.5 fL; WBC 5.45 10^3/uL (4.4-10.8)
[2022-12-26 10:48] LABS: Bilirubin Negative (Negative); Blood Negative (Negative); Clarity Clear (Clear); Glucose Negative (Negative); Ketones Negative (Negative); Leukocyte Esterase Trace (Negative); Nitrite Negative (Negative); Urobilinogen 0.2 mg/dL (Up to 0.2); pH 5.5 (5-8)
[2022-12-26 11:10] LABS: ALT 24 U/L (14-59); AST 22 U/L (15-37); Alkaline Phosphatase 117 U/L (46-116); Anion Gap 5.2 mmol/L (3-11); BUN 16 mg/dL (7-18); Bilirubin, Total 0.5 mg/dL (0.2-1.0); CO2 27.8 mmol/L (21.0-32.0); CREATININE 0.6 mg/dL (0.55-1.02); Calcium 8.9 mg/dL (8.5-10.1); Chloride 108 mmol/L (98-107); Estimated GFR 89.01 (mL/min/1.73m2); Glucose 98 mg/dL (74-106); LDH 175 U/L (81-234); Sodium 141 mmol/L (136-145); Total Protein 6.3 g/dL (6.4-8.2)
== END 2023-01-02 23:59 | disposition home or self-care (01) ==
LOC: INF 04:06
PROVIDERS: PCP Physician Assistant; Visit Provider Internal Medicine Hematology & Oncology
DX: C82.3 Follicular lymphoma grade IIIa (principal); Z45.2 Encounter for adjustment and management of vascular access device
CPT/HCPCS: 36591; 80053; 81003; 83615; 85025

== ENCOUNTER 2023-01-23 02:22 | Outpatient (RCR) | payer MEDICARE, SELFPAY ==
[2023-01-23] MEDS: Normal Saline Flush 10 ML SYR IVP (10:20)
[2023-01-23 10:29] LABS: Abs Immature Grans 0.01 10^3/uL (0.0-0.06); Absolute Basophil Count 0.03 10^3/uL (0.0-0.2); Absolute Lymphocyte Count 0.66 10^3/uL (1.2-3.4); Absolute Monocyte Count 0.68 10^3/uL (0.1-0.8); Basophils % 0.8; Eosinophils % 10.9; HCT 32.4 % (36.0-46.0); HGB 10.7 g/dL (11.2-15.7); Immature Grans % 0.3; Lymphocytes % 17.9; MCH 31.9 pg (27.0-33.0); MCV 97 fL (80-95); MPV 10.2 fL (8.0-11.0); Monocytes % 18.5; Neutrophils % 51.6; Platelet Count 140 10^3/uL (130-400); RBC 3.35 10^6/uL (3.93-5.22); RDW 14.1 % (11.7-14.6); RDW-SD 50.3 fL; WBC 3.68 10^3/uL (4.4-10.8)
[2023-01-23 10:41] LABS: Bilirubin Negative (Negative); Blood Negative (Negative); Clarity Clear (Clear); Glucose Negative (Negative); Ketones Negative (Negative); Leukocyte Esterase Negative (Negative); Nitrite Negative (Negative); Urobilinogen 0.2 mg/dL (Up to 0.2)
[2023-01-23 10:44] LABS: ALT 22 U/L (14-59); AST 19 U/L (15-37); Albumin 3.1 g/dL (3.4-5.0); Alkaline Phosphatase 109 U/L (46-116); Anion Gap 6.1 mmol/L (3-11); BUN 19 mg/dL (7-18); Bilirubin, Total 0.6 mg/dL (0.2-1.0); CO2 29.9 mmol/L (21.0-32.0); CREATININE 0.8 mg/dL (0.55-1.02); Calcium 9.3 mg/dL (8.5-10.1); Chloride 105 mmol/L (98-107); Estimated GFR 73.06 (mL/min/1.73m2); Glucose 121 mg/dL (74-106); LDH 155 U/L (81-234); Sodium 141 mmol/L (136-145); Total Protein 6.4 g/dL (6.4-8.2)
== END 2023-02-01 23:59 | disposition home or self-care (01) ==
LOC: INF 02:22
PROVIDERS: PCP Physician Assistant; Visit Provider Internal Medicine Hematology & Oncology
DX: C82.3 Follicular lymphoma grade IIIa (principal); Z45.2 Encounter for adjustment and management of vascular access device
CPT/HCPCS: 36591; 80053; 81003; 83615; 85025

== ENCOUNTER 2023-02-20 03:44 | Outpatient (RCR) | payer MEDICARE, SELFPAY ==
[2023-02-20] MEDS: Normal Saline Flush 10 ML SYR IVP (10:57)
[2023-02-20 11:10] LABS: HCT 32.7 % (36.0-46.0); HGB 10.6 g/dL (11.2-15.7); MCH 30.9 pg (27.0-33.0); MCHC 32.4 % (32.0-36.0); MCV 95 fL (80-95); MPV 9.8 fL (8.0-11.0); Platelet Count 132 10^3/uL (130-400); RBC 3.43 10^6/uL (3.93-5.22); RDW 13.9 % (11.7-14.6); RDW-SD 48.9 fL; WBC 3.38 10^3/uL (4.4-10.8)
[2023-02-20 11:19] LABS: Bilirubin Negative (Negative); Blood Negative (Negative); Clarity Clear (Clear); Glucose Negative (Negative); Ketones Negative (Negative); Leukocyte Esterase Negative (Negative); Nitrite Negative (Negative); Urobilinogen 0.2 mg/dL (Up to 0.2); pH 6.5 (5-8)
[2023-02-20 11:21] LABS: ALT 24 U/L (14-59); AST 22 U/L (15-37); Albumin 3.1 g/dL (3.4-5.0); Alkaline Phosphatase 112 U/L (46-116); Anion Gap 4.6 mmol/L (3-11); BUN 13 mg/dL (7-18); Bilirubin, Total 0.6 mg/dL (0.2-1.0); CO2 30.4 mmol/L (21.0-32.0); CREATININE 0.7 mg/dL (0.55-1.02); Calcium 8.9 mg/dL (8.5-10.1); Chloride 105 mmol/L (98-107); Estimated GFR 85.76 (mL/min/1.73m2); Glucose 90 mg/dL (74-106); LDH 180 U/L (81-234); Potassium 4.3 mmol/L (3.5-5.1); Sodium 140 mmol/L (136-145); Total Protein 6.3 g/dL (6.4-8.2)
[2023-02-20 11:47] LABS: Absolute Eosinophil Count 0.78 10^3/uL (0.0-0.7); Absolute Lymphocyte Count 1.15 10^3/uL (1.2-3.4); Absolute Monocyte Count 0.85 10^3/uL (0.1-0.8); Absolute Neutrophil Count 0.61 10^3/uL (1.2-6.7); Atypical Lymphocytes % 9
[2023-02-20 11:48] LABS: Diff Comment Manual Differential; RBC Morphology Normal
== END 2023-03-04 23:59 | disposition home or self-care (01) ==
LOC: INF 03:44
PROVIDERS: PCP Physician Assistant; Visit Provider Internal Medicine Hematology & Oncology
DX: C82.3 Follicular lymphoma grade IIIa (principal); Z45.2 Encounter for adjustment and management of vascular access device
CPT/HCPCS: 36591; 80053; 81003; 83615; 85025

== ENCOUNTER 2023-04-03 13:13 | Outpatient (RCR) | payer MEDICARE, SELFPAY ==
[2023-04-03 11:56] LABS: Abs Immature Grans 0.02 10^3/uL (0.0-0.06); Absolute Basophil Count 0.02 10^3/uL (0.0-0.2); Absolute Eosinophil Count 0.56 10^3/uL (0.0-0.7); Absolute Lymphocyte Count 0.95 10^3/uL (1.2-3.4); Absolute Monocyte Count 0.85 10^3/uL (0.1-0.8); Absolute Neutrophil Count 3.53 10^3/uL (1.2-6.7); Basophils % 0.3; Eosinophils % 9.4; HCT 31.5 % (36.0-46.0); HGB 10.8 g/dL (11.2-15.7); Immature Grans % 0.3; MCHC 34.3 % (32.0-36.0); MCV 94 fL (80-95); Monocytes % 14.3; Neutrophils % 59.7; Platelet Count 151 10^3/uL (130-400); RBC 3.37 10^6/uL (3.93-5.22); RDW 14.8 % (11.7-14.6); RDW-SD 50.6 fL; WBC 5.93 10^3/uL (4.4-10.8)
[2023-04-03 11:59] LABS: Bilirubin Negative (Negative); Blood Negative (Negative); Clarity Clear (Clear); Glucose Negative (Negative); Ketones Negative (Negative); Leukocyte Esterase Trace (Negative); Nitrite Negative (Negative); Specific Gravity 1.015 (1.005-1.025); Urobilinogen 0.2 mg/dL (Up to 0.2)
[2023-04-03] MEDS: Normal Saline Flush 10 ML SYR IVP (12:00)
[2023-04-03] MEDS: Heparin 500 UNITS/5 ML SYRINGE IVP (12:01)
[2023-04-03 12:19] LABS: ALT 30 U/L (14-59); AST 27 U/L (15-37); Albumin 3.3 g/dL (3.4-5.0); Alkaline Phosphatase 117 U/L (46-116); BUN 16 mg/dL (7-18); Bilirubin, Total 0.7 mg/dL (0.2-1.0); CREATININE 0.7 mg/dL (0.55-1.02); Calcium 9.3 mg/dL (8.5-10.1); Chloride 106 mmol/L (98-107); Estimated GFR 85.76 (mL/min/1.73m2); Glucose 112 mg/dL (74-106); LDH 189 U/L (81-234); Potassium 4.1 mmol/L (3.5-5.1); Sodium 141 mmol/L (136-145); Total Protein 6.5 g/dL (6.4-8.2)
== END 2023-04-04 23:59 | disposition home or self-care (01) ==
LOC: INF 13:13
PROVIDERS: PCP Physician Assistant; Visit Provider Internal Medicine Hematology & Oncology
DX: C82.3 Follicular lymphoma grade IIIa (principal); Z45.2 Encounter for adjustment and management of vascular access device
CPT/HCPCS: 36591; 80053; 81003; 83615; 85025

== ENCOUNTER 2023-05-29 03:17 | Outpatient (RCR) | payer MEDICARE, SELFPAY ==
[2023-05-29] MEDS: Normal Saline Flush 10 ML SYR IVP (10:23)
[2023-05-29] MEDS: Heparin 500 UNITS/5 ML SYRINGE IV (10:23)
[2023-05-29 10:31] LABS: Abs Immature Grans 0.01 10^3/uL (0.0-0.06); Absolute Basophil Count 0.02 10^3/uL (0.0-0.2); Absolute Lymphocyte Count 0.83 10^3/uL (1.2-3.4); Absolute Monocyte Count 0.68 10^3/uL (0.1-0.8); Absolute Neutrophil Count 3.37 10^3/uL (1.2-6.7); Basophils % 0.4; Eosinophils % 5.8; HCT 32.7 % (36.0-46.0); Immature Grans % 0.2; Lymphocytes % 15.9; MCH 31.9 pg (27.0-33.0); MCHC 33.6 % (32.0-36.0); MCV 95 fL (80-95); MPV 9.6 fL (8.0-11.0); Monocytes % 13.1; Neutrophils % 64.6; Platelet Count 178 10^3/uL (130-400); RBC 3.45 10^6/uL (3.93-5.22); RDW 13.7 % (11.7-14.6); RDW-SD 47.1 fL; WBC 5.21 10^3/uL (4.4-10.8)
[2023-05-29 10:47] LABS: ALT 24 U/L (14-59); AST 21 U/L (15-37); Albumin 3.5 g/dL (3.4-5.0); Alkaline Phosphatase 72 U/L (46-116); Anion Gap 3.9 mmol/L (3-11); BUN 18 mg/dL (7-18); Bilirubin, Total 0.7 mg/dL (0.2-1.0); CO2 30.1 mmol/L (21.0-32.0); CREATININE 0.8 mg/dL (0.55-1.02); Calcium 9.8 mg/dL (8.5-10.1); Chloride 106 mmol/L (98-107); Estimated GFR 73.06 (mL/min/1.73m2); Glucose 127 mg/dL (74-106); LDH 144 U/L (81-234); Sodium 140 mmol/L (136-145); Total Protein 6.7 g/dL (6.4-8.2)
== END 2023-06-04 23:59 | disposition home or self-care (01) ==
LOC: INF 03:17
PROVIDERS: PCP Physician Assistant; Visit Provider Internal Medicine Hematology & Oncology
DX: C82.3 Follicular lymphoma grade IIIa (principal); Z45.2 Encounter for adjustment and management of vascular access device
CPT/HCPCS: 36591; 80053; 83615; 85025

== ENCOUNTER 2023-08-07 12:35 | Outpatient (RCR) | payer MEDICARE, SELFPAY ==
--- OUTSIDE RECORDS SUMMARY | 2023-08-07 12:42 | XMS_ITS | Continuity of Care Document ---
Author Name Unknown Organization [facility] Address [address] [place] [address] Care Team Providers Care [facility]gr[employer]ist Name Role Phone Harshil Mosquera Primary Care Physician [facility]counter [facility] Date(s): 08/28/22 - 08/28/[address] [address] Encounter Diagnosis Retroperitoneal lymphadenopathy(Discharge Diagnosis) - 08/28/22 Discharge Disposition: Home or Self Care Attending Physician: Harshil Mosquera MD Admitting Physician: Harshil Mosquera MD Referring Physician: aHrshil Mosquera MD Allergies, Adverse Reactions, Alerts Substance Reaction Severity Status Bactrim Nausea Mild Active Assessment and Plan Diagnostic Tests Pending * CA 125 [facility] 08/28/22 Future Scheduled Tests Radiology* US Pelvic Complete 08/27/22 Medications Colace 100 mg oral capsule 100 mg = 1 cap, Oral, BID, PRN as needed for constipation, # 30 cap, 0 Refill(s), Pharmacy: [facility], 165, cm, 08/23/22 9:32:00 EST, Height/Length Dosing, 61.23, kg, 08/23/22 9:32:00 EST, Weight Dosing Start Date: 08/23/22 Status: Ordered Dulcolax Laxative 5 mg oral delayed release tablet 5 mg = 1 tab, Oral, Daily, # 15 tab, 0 Refill(s), Pharmacy: [facility], 165, cm, 08/23/22 9:32:00 EST, Height/Length Dosing, 61.23, kg, 08/23/22 9:32:00 EST, Weight Dosing Start Date: 08/23/22 Stop Date: 09/07/22 Status: Ordered Tylenol 8 Hour 650 mg oral tablet, extended release 1,300 mg = 2 tab, Oral, every 8 hr, PRN as needed for fever, # 24 tab, 0 Refill(s), Pharmacy: [id number], 165, cm, 08/23/22 9:32:00 EST, Height/Length Dosing, 61.23, kg, 08/23/22 9:32:00 EST, Weight Dosing Start Date: 08/23/22 Status: Ordered Social History Social History Type Response Tobacco Former tobacco user Tobacco Use:. 1 Sex Female 140 yrs ago per pt Patient Care team information Personnel Name: [facility], Harshil Tucker MD Address: Address: [address] [address]- [place]
--- OUTSIDE RECORDS SUMMARY | 2023-08-07 12:42 | XMS_ITS | Continuity of Care Document ---
Author Name Unknown Organization [facility] Address [address] [place] [address] Care Team Providers Care Campaign Developer Name Role Phone [facility] Harshil BARCLAY Primary Care Physician Encounter [facility] Date(s): 08/23/22 - 08/23/[address] [id number] Encounter Diagnosis Abdominal mass(Discharge Diagnosis) - 08/23/22 Discharge Disposition: Home or Self Care Attending Physician: Dianne Rodríguez MD Admitting Physician: Dianne Rodríguez MD Allergies, Adverse Reactions, Alerts Substance Reaction Severity Status Bactrim Nausea Mild Active Functional Status 08/23/22 Other exposure to Infectious Disease Non e Medications Colace 100 mg oral capsule 100 mg = 1 cap, Oral, BID, PRN as needed for constipation, # 30 cap, 0 Refill(s), Pharmacy: [facility], 165, cm, 08/23/22 9:32:00 EST, Height/Length Dosing, 61.23, kg, 08/23/22 9:32:00 EST, Weight Dosing Start Date: 08/23/22 Status: Ordered Dulcolax Laxative 5 mg oral delayed release tablet 5 mg = 1 tab, Oral, Daily, # 15 tab, 0 Refill(s), Pharmacy: [facility], 165, cm, 08/23/22 9:32:00 EST, Height/Length Dosing, 61.23, kg, 08/23/22 9:32:00 EST, Weight Dosing Start Date: 08/23/22 Stop Date: 09/07/22 Status: Ordered Tylenol 8 Hour 650 mg oral tablet, extended release 1,300 mg = 2 tab, Oral, every 8 hr, PRN as needed for fever, # 24 tab, 0 Refill(s), Pharmacy: [facility], 165, cm, 08/23/22 9:32:00 EST, Height/Length Dosing, 61.23, kg, 08/23/22 9:32:00 EST, Weight Dosing Start Date: 08/23/22 Status: Ordered Results Laboratory List Name Date CBC w/ Diff 08/23/22 Comprehensive Metabolic Panel (CMP) 08/23 Lactic Acid 08/23/22 Lipase Level 08/23/22 .Manual Differential (NCTY) 08/23/22 Most recent to oldest [Reference Range]: 1 WBC [5.0-10.0 x10^3/mcL] 6.9 x10^3/mcL (08/23/22 10:09 AM) RBC [4.1-5.3 x10^6/mcL] 3.7 x10^6/mcL *LOW* (08/23/22 10:09 AM) Segs Man [40-75 %] 69 % (08/23/22 10:09 AM) Lymph Man [20-50 %] 6 % *LOW* (08/23/22 10:09 AM) Bibb Man 16 % *NA* (08/23/22 10:09 AM) Eos Man 8 % *NA* (08/23/22 10:09 AM) BUN [7-18 mg/dL] 21 mg/dL *HI* (08/23/22 10:09 AM) Glucose Level [74-106 mg/dL] 90 mg/dL (08/23/22 10:09 AM) Lymph, Atyp Man 1 % *NA* (08/23/22 10:09 AM) Potassium Level [3.5-5.1 mmol/L] 4.5 mmo l/L (08/23/22 10:09 AM) MCV [80.0-96.0] 90.8 (08/23/22 10:09 AM) RBC Morph Normal (08/23/22 10:09 AM) AST [15-37 unit/L] 28 unit/L (08/23/22 10:09 AM) ALT [14-59 unit/L] 19 unit/L (08/23/22 10:09 AM) MCHC [31.0-35.0 g/dL] 32.9 g/dL (08/23/22 10:09 AM) Sodium Level [136-145 mmol/L] 141 mmol/L (08/23/22 10:09 AM) Hct [37.0-47.0 %] 33.4 % *LOW* (08/23/22 10:09 AM) Lipase Level [16-77 unit/L] 26 unit/L (08/23/22 10:09 AM) Calcium Level [8.5-10.1 mg/dL] 9.5 mg/dL (08/23/22 10:09 AM) Albumin Level [3.4-5.0 g/dL] 3.1 g/dL *LOW* (08/23/22 10:09 AM) Protein Total [6.4-8.2 g/dL] 6.2 g/dL *LOW* (08/23/22 10:09 AM) MCH [26.0-32.0 pg] 29.9 pg (08/23/22 10:09 AM) Bilirubin Total [0.2-1.0 mg/dL] 0.6 mg/d L (08/23/22 10:09 AM) Hgb [12.0-16.0 g/dL] 11.0 g/dL *LOW* (08/23/22 10:09 AM) Alk Phos [46-146 unit/L] 87 unit/L (08/23/22 10:09 AM) Band Man [0-5 %] 0 % (08/23/22 10:09 AM) Platelets [130-450 x10^3/mcL] 270 x10^3/ mcL (08/23/22 10:09 AM) CO2 [21-32 mmol/L] 28 mmol/L (08/23/22 10:09 AM) Lactic Acid Lvl [0.7-2.1 mmol/L] 0.9 mmo l/L (08/23/22 10:09 AM) eGFR Non-AA [>=60] 41 *LOW* (08/23/22 10:09 AM) eGFR AA [>=60] 41 *LOW* (08/23/22 10:09 AM) Chloride Level [98-107 mmol/L] 105 mmol/ L (08/23/22 10:09 AM) RDW-CV [11.7-17.0 %] 12.3 % (08/23/22 10:09 AM) Abs Neut Man 4.8 x10^3/mcL *NA* (08/23/22 10:09 AM) Creatinine Level [0.55-1.02 mg/dL] 1.29 mg/dL *HI* (08/23/22 10:09 AM) Baso Man [0-1 %] 0 % (08/23/22 10:09 AM) Vital Signs Most recent to oldest [Reference Range]: 1 2 Temperature Temporal Artery [36-38 Deg C ] 36.5 Deg C (08/23/22 12:11 PM) 36.4 Deg C (08/23/22 9:25 AM) Peripheral Pulse Rate [60-100 bpm] 54 bp m *LOW* (08/23/22 12:11 PM) 64 bpm (08/23/22 9:25 AM) Respiratory Rate [12-24 br/min] 16 br/mi n (08/23/22 12:11 PM) 16 br/min (08/23/22 9:25 AM) Blood Pressure [90-140/60-90 mmHg] 131/7 7mmHg (08/23/22 12:11 PM) 153/77mmHg *HI* (08/23/22 9:25 AM) Mean Arterial Pressure Cuff 93 mmHg (08/23/22 12:11 PM) Weight Dosing 61.23 kg (08/23/22 9:32 AM) Weight Estimated 61.23 kg (08/23/22 9:25 AM) Height/Length Dosing 165.000 cm (08/23/22 9:32 AM) Height/Length Estimated 165.000 cm (08/23/22 9:25 AM) Social History Social History Type Response Tobacco Former tobacco user Tobacco Use:. 1 Sex Female 140 yrs ago per pt Hospital Discharge Instructions Patient Education 08/23/2022 12:49:52 Pelvic Mass, Female Pelvic Mass, Female A pelvic mass is an abnormal growth in the pelvis. The pelvis is the area between your hip bones. It includes the bladder, rectum, uterus, and ovaries. A pelvic mass may be found during a routine pelvic exam or while performing an MRI, CT scan, or ultrasound for other problems of the abdomen. What are common types of pelvic masses? Pelvic masses include: ??? Ovarian cysts. These are fluid-filled sacs that form on an ovary. ??? Tumors. These may be cancerous (malignant) or noncancerous (benign). Noncancerous tumors in theuterus are called uterine fibroids. ??? Ectopic . This is when the fertilized egg attaches (implants) outside the uterus. ??? Infections. What type of testing may be needed? Your health care provider may recommend that you have tests to diagnose the cause of the pelvic mass. The following tests may be done if a pelvic mass is found: ??? Physical exam. ??? Blood tests. ??? X-rays. ??? Ultrasound. ??? CT scan. ??? MRI. ??? A surgery to look inside your abdomen with cameras (laparoscopy). ??? A biopsy that is performed with a needle or during laparoscopy or surgery. In some cases, what seemed like a pelvic mass may actually be something else, such as a mass in oneof the organs that is near the pelvis, an infection (abscess), or scar tissue (adhesions) that formed after a surgery. Tests and physical exams may be done once, or they may be done regularly for a period of time. Tests and exams that are done regularly will help monitor whether the mass or tissue change is growing and becoming a concern. What are common treatments? Treatment is not always needed for this condition. Your health care provider may recommend careful monitoring (watchful waiting) and regular tests and exams. Treatment will depend on the cause of themass. Follow these instructions at home: ??? What you need to do at home will depend on the cause of the mass. Follow the instructions that your health care provider gives to you. In general: ??? Keep all follow-up visits as directed by your health care provider. This is important. ??? Take [id number] and prescription medicines only as directed by your health care provider. ??? If you were prescribed an antibiotic medicine, take it as told by your health care provider. Donot stop taking the antibiotic even if you start to feel better. ??? Follow any restrictions that are given to you by your health care provider. ??? Try to stay calm, and be sure to ask questions. Make sure you understand the recommendations for monitoring and whether there is a reason for concern. Contact a health care provider if you: ??? Develop new symptoms. ??? Note changes in the size, shape, or position of your mass. ??? Are unable to have a bowel movement. ??? Bruise or bleed easily. Get help right away if you: ??? Vomit bright red blood or vomit material that looks like coffee grounds. ??? Have blood in your stools, or the stools turn black and tarry. ??? Have an abnormal or increased amount of vaginal bleeding. ??? Have a fever or chills. ??? Develop sudden or worsening pain that is not relieved by medicine. ??? Feel dizzy or weak. ??? Feel light-headed or you faint. ??? Feel that the mass has suddenly gotten larger. ??? Develop severe bloating in your abdomen or your pelvis. ??? Cannot pass any urine. Summary ??? A pelvic mass is an abnormal growth in the pelvis. The pelvis is the area between your hip bones. It includes the bladder, rectum, uterus, and ovaries. ??? Pelvic masses include ovarian cysts, tumors, ectopic , or infections. ??? Your health care provider may recommend that you have tests to diagnose the cause of the pelvicmass. ??? Treatment will depend on the cause of the mass. This information is not intended to replace advice given to you by your health care provider. Make sure you discuss any questions you have with your health care provider. Document Revised: 08/13/2018 Document Reviewed: 08/13/2018 [employer] [place] Patient Education ?? 2021 [employer]. Follow Up Care 08/23/2022 09:25:25 With:Follow up with primary care provider Address: When:2 to 4 days Physician Emergency department Note * Dianne Rodríguez MD: PERFORM Event Display: ED Note Physician Authored Date: [id number] CRIS MENDEZ :1940 Age:82 years Sex:Female Visit Date:08/23/2022 Primary Care Physician: Michelle BUSTILLOS, Harshil Tucker MD Basic Information Time Seen: Dianne Rodríguez MD / 08/23/2022 09:38 Chief Complaint Pt states dx with diverticulitis 3 weeks ago, finished abx course 2 weeks ago, states no relief. C/o mid-line and L sided abd pain, some nausea, no vomiting. History Of Present Illness: 82-year-old female with history of diverticulitis??presents to the emergency department complainingof ongoing abdominal pain in the past 3 weeks.?? The patient says that??at the onset of left lower quadrant pain she went to her PCP??and Anette Melara. ??She was given a diagnosis of diverticulitis??an d??was??advised to take amoxicillin for a week. ??The patient says she took of the antibiotics as prescribed??but her pain never went away and has actually become worse.?? Mostly left lower quadrant but this morning she also had some midepigastric pain.?? Associated with??severe constipation.?? Patient says she has to strain to go to the bathroom, last had a very small bowel movement this morning.?? Patient says she has been having some nausea??and is afraid to eat.?? She has been drinking somefluids.?? She has not had any fevers or chills.?? No dysuria or hematuria. ??No chest pain or shortness of breath.?? Last week she noted??some dark stool??but this is gone away.?? Other than the amoxicillin??3 weeks ago??she says she takes no medications.?? She has not been taking any Tylenol.?? This morning she did take??some ibuprofen??for the first time.?? Her last??episode of diverticulitis she says??was about a year ago.?? She never required hospitalization for it.?? She denies any??history of abdominal surgery. Physical Exam Vitals & Measurements T:??36.5?C ??(Temporal Artery)?? HR:??54??(Peripheral)?? RR:??16?? BP:??131/77?? SpO2:??94%?? HT:??165.000??cm?? WT:??61.23??kg??(Estimated)?? Pain Score:??6?? O2 Therapy:??Room air?? General: A&Ox3, Calm, no apparent distress, well developed, pleasant and cooperative ?? HEENT: Head ATNC. Eyes: LAYTON. Extraocular Mobility: intact and symmetrical. Conjunctiva: non-injected, anicteric, no discharge. Oral Cavity: moist. Neck: no masses, no crepitus. Lymph Nodes: no cervical lymphadenopathy? Respiratory: CTA bilaterally, no wheezing, no rales/crackles? CV: RRR, normal S1, normal S2, no murmurs, rubs or gallops ?? Abdomen : soft, moderate left lower quadrant tenderness to palpation, non- distended, no rebound or guarding, no hepatosplenomegaly ?? Pelvic exam:?? Sp exam: Normal appearing external female genitalia, normal vaginal epithelium, no abnormal discharge. The cervix was not visible via sp exam.?? Bimanual exam: The cervix was found deep to the Rt of the pt.??No CMT, large mass felt on bimanual,spanning from Lt to Rt equally, the most proximal part of the mass in the abd could not be felt. ?? Extremities: no le swelling, warm and well-perfused, no cyanosis, capillary refill <2 seconds? Skin: no rash, no lesions, no bruising? Neuro: normal tone, normal strength in all 4 extremities, sensation intact?? Medical Decision Makin-year-old female with history of diverticulitis??presents to the emergency department complainingof ongoing abdominal pain??and anorexia in the past 3 weeks.?? Pt was given a clinical diagnosis of diverticulitis??at onset of symptoms a few weeks ago,??treatedwith amoxicillin, no improvement in pain. Patient is chronically ill-appearing??though she tells me she has no medical problems and takes no medications Differential diagnosis includes??diverticulitis,??atypical appendicitis,??pyelonephritis, UTI, obstruction, malignancy Plan: labs, CT a/p Labs unremarkable CT shows large mass possibly lymph node mass, suggestive of lymphoma vs malignancy coming from uterus/adnexaes Discussed with [facility]. They recommended MRI and biopsy. Discussed with Dr Martinez, who suggested pelvic exam which was as described in the PE and is suggestive of a uterine/adnexal mass. Dr Martinez will reach out to the patient to see her in the office tomorrow. Discussed findings and plan??with patient and her . Return precautions discussed, all questions answered. Procedure No Qualifying Data Assessment/Plan 1.??Abdominal mass??R19.00 Ordered: Tylenol 8 Hour 650 mg oral tablet, extended release, 1,300 mg = 2 tab, Oral, every 8 hr, PRN as needed for fever, # 24 tab, 0 Refill(s), Pharmacy: [facility], 165, cm, 08/23/22 9:32:00 EST, Height/Length Dosing, 61.23, kg, 08/23/22 9:32:00 EST, Weight Dosing Dulcolax Laxative 5 mg oral delayed release tablet, 5 mg = 1 tab, Oral, Daily, # 15 tab, 0 Refill(s), Pharmacy: [facility], 165, cm, 08/23/22 9:32:00 EST, Height/Length Dosing, 61.23, kg, 08/23/22 9:32:00 EST, Weight Dosing Colace 100 mg oral capsule, 100 mg = 1 cap, Oral, BID, PRN as needed for constipation, # 30 cap, 0 Refill(s), Pharmacy: [facility], 165, cm, 08/23/22 9:32:00 EST, Height/Length Dosing, 61.23, kg, 08/23/22 9:32:00 EST, Weight Dosing Discharge Patient, 08/23/22 13:50:00 EST, Constant Indicator ?? Patient Education Pelvic Mass, Female Follow Up With When Contact Information Follow up with primary care provider Within 2 to 4 days Additional Instructions: Medication Reconciliation New Prescription acetaminophen (Tylenol 8 Hour 650 mg oral tablet, extended release)2 tab Oral (given by mouth) every 8 hours as needed as needed for fever. Refills: 0. ?? bisacodyl (Dulcolax Laxative 5 mg oral delayed release tablet)1 tab Oral (given by mouth) every dayfor 15 Days. Refills: 0. ?? docusate (Colace 100 mg oral capsule)1 Capsules Oral (given by mouth) 2 times a day as needed as needed for constipation. Refills: 0. Problem List/Past Medical History Ongoing No qualifying data Historical No qualifying data Medication Administration Given 0.9% NaCl bolus, 1000 mL, IV Piggyback acetaminophen, 650 mg, Oral Allergies Bactrim??(Nausea) Social History Electronic Cigarette/Vaping Electronic Cigarette Use: Never. Tobacco Former tobacco user Tobacco Use:.- Comments: 40 yrs ago per pt Lab Results CBC and Differential?? LATEST RESULTS?? WBC?? 08/23/22 10:09?? 6.9?? RBC?? 08/23/22 10:09?? 3.7 ??Low?? Hgb?? 08/23/22 10:09?? 11.0 ??Low?? Hct?? 08/23/22 10:09?? 33.4 ??Low?? MCV?? 08/23/22 10:09?? 90.8?? MCH?? 08/23/22 10:09?? 29.9?? MCHC?? 08/23/22 10:09?? 32.9?? RDW-CV?? 08/23/22 10:09?? 12.3?? Platelets?? 08/23/22 10:09?? 270?? Segs Man?? 08/23/22 10:09?? 69?? Lymph Man?? 08/23/22 10:09?? 6 ??Low?? Bibb Man?? 08/23/22 10:09?? 16?? Eos Man?? 08/23/22 10:09?? 8?? Baso Man?? 08/23/22 10:09?? 0?? Band Man?? 08/23/22 10:09?? 0?? Lymph, Atyp Man?? 08/23/22 10:09?? 1?? Abs Neut Man?? 08/23/22 10:09?? 4.8?? RBC Morph?? 08/23/22 10:09?? Normal? Routine Chemistry?? LATEST RESULTS?? Sodium Level?? 08/23/22 10:09?? 141?? Potassium Level?? 08/23/22 10:09?? 4.5?? Chloride Level?? 08/23/22 10:09?? 105?? CO2?? 08/23/22 10:09?? 28?? Alk Phos?? 08/23/22 10:09?? 87?? AST?? 08/23/22 10:09?? 28?? ALT?? 08/23/22 10:09?? 19?? BUN?? 08/23/22 10:09?? 21 ??High?? Glucose Level?? 08/23/22 10:09?? 90?? Creatinine Level?? 08/23/22 10:09?? 1.29 ??High?? eGFR AA?? 08/23/22 10:09?? 41 ??Low?? eGFR Non-AA?? 08/23/22 10:09?? 41 ??Low?? Calcium Level?? 08/23/22 10:09?? 9.5?? Protein Total?? 08/23/22 10:09?? 6.2 ??Low?? Albumin Level?? 08/23/22 10:09?? 3.1 ??Low?? Bilirubin Total?? 08/23/22 10:09?? 0.6?? Lactic Acid Lvl?? 08/23/22 10:09?? 0.9?? Lipase Level?? 08/23/22 10:09?? 26? Electronically Signed on 08/23/22 02:53 PM Dianne Rodríguez MD Emergency department Discharge instructions * Dianne Rodríguez MD: PERFORM Event Display: ED Discharge Information Authored Date: [id number] CRIS MENDEZ :1940 Age:82 years Sex:Female Visit Date:08/23/2022 Primary Care Physician: Harshil Mosquera MD Discharge Instructions We would like to thank you for allowing us to assist you with your healthcare needs. The following includes patient education materials and information regarding your injury/illness. Diagnosis from Today's Visit Abdominal mass Discharge Vitals Temperature??(Temporal Artery) 97.7 ??F (36.5 ??C) Heart Rate??(Peripheral) 54 Respiratory Rate?? 16 Blood Pressure?? 131/77?? Height?? 64.96 in (165.000 cm) Weight??(Estimated) 135.01 lb (61.23 kg) Allergies Bactrim??(Nausea) What to Do Next Instructions from Your Care Team Please take Colace and Dulcolax as prescribed. Take Tylenol 650mg every 8 hours for pain. Follow upwith Dr Martinez for reevaluation and definitive plan tomorrow. His office will reach out to you tanisha can also call this afternoon. Please return to the ED for any new or worsening symptoms. You Need to Schedule the Following Appointments Follow Up with??Follow up with primary care provider When:??Within 2 to 4 days You were treated today on an emergency basis; it may be nielsen to contact your primary care provider to notify them of your visit today. You may have been referred to your regular doctor or a specialist, please follow up as instructed. If your condition worsens or you can't get in to see the doctor, contact the Emergency Department. Medications What How Much When Why Instructions Next Dose New acetaminophen (Tylenol 8 Hour 650 mg oral tablet,extended release) 2 tab Oral (given by mouth) Every 8 hours as needed for as needed for fever Abdominal mass Pickup at [facility] New bisacodyl (Dulcolax Laxative 5 mg oral delayed release tablet) 1 tab Oral (given by mouth) Every day Abdominal mass Duration: 15 Days Pickup at [facility] New docusate (Colace 100 mg oral capsule) 1 Capsules Oral (given by mouth) 2 times a day as needed for as needed for constipation Abdominal mass Pickup at [facility] Pharmacy Information [facility]: [address], [place] [id number] [phone] Education Materials Pelvic Mass, Female A pelvic mass is an abnormal growth in the pelvis. The pelvis is the area between your hip bones. It includes the bladder, rectum, uterus, and ovaries. A pelvic mass may be found during a routine pelvic exam or while performing an MRI, CT scan, or ultrasound for other problems of the abdomen. What are common types of pelvic masses? Pelvic masses include: ? Ovarian cysts. These are fluid-filled sacs that form on an ovary. ? Tumors. These may be cancerous (malignant) or noncancerous (benign). Noncancerous tumors in the uterus are called uterine fibroids. ? Ectopic . This is when the fertilized egg attaches (implants) outside the uterus. ? Infections. What type of testing may be needed? Your health care provider may recommend that you have tests to diagnose the cause of the pelvic mass. The following tests may be done if a pelvic mass is found: ? Physical exam. ? Blood tests. ? X-rays. ? Ultrasound. ? CT scan. ? MRI. ? A surgery to look inside your abdomen with cameras (laparoscopy). ? A biopsy that is performed with a needle or during laparoscopy or surgery. In some cases, what seemed like a pelvic mass may actually be something else, such as a mass in oneof the organs that is near the pelvis, an infection (abscess), or scar tissue (adhesions) that formed after a surgery. Tests and physical exams may be done once, or they may be done regularly for a period of time. Tests and exams that are done regularly will help monitor whether the mass or tissue change is growing and becoming a concern. What are common treatments? Treatment is not always needed for this condition. Your health care provider may recommend careful monitoring (watchful waiting) and regular tests and exams. Treatment will depend on the cause of themass. Follow these instructions at home: ? What you need to do at home will depend on the cause of the mass. Follow the instructions that yourhealth care provider gives to you. In general: ? Keep all follow-up visits as directed by your health care provider. This is important. ? Take qoqv-mvb-rnslzmh and prescription medicines only as directed by your health care provider. ? If you were prescribed an antibiotic medicine, take it as told by your health care provider. Do notstop taking the antibiotic even if you start to feel better. ? Follow any restrictions that are given to you by your health care provider. ? Try to stay calm, and be sure to ask questions. Make sure you understand the recommendations for monitoring and whether there is a reason for concern. Contact a health care provider if you: ? Develop new symptoms. ? Note changes in the size, shape, or position of your mass. ? Are unable to have a bowel movement. ? Bruise or bleed easily. Get help right away if you: ? Vomit bright red blood or vomit material that looks like coffee grounds. ? Have blood in your stools, or the stools turn black and tarry. ? Have an abnormal or increased amount of vaginal bleeding. ? Have a fever or chills. ? Develop sudden or worsening pain that is not relieved by medicine. ? Feel dizzy or weak. ? Feel light-headed or you faint. ? Feel that the mass has suddenly gotten larger. ? Develop severe bloating in your abdomen or your pelvis. ? Cannot pass any urine. Summary ? A pelvic mass is an abnormal growth in the pelvis. The pelvis is the area between your hip bones. It includes the bladder, rectum, uterus, and ovaries. ? Pelvic masses include ovarian cysts, tumors, ectopic , or infections. ? Your health care provider may recommend that you have tests to diagnose the cause of the pelvic mass. ? Treatment will depend on the cause of the mass. This information is not intended to replace advice given to you by your health care provider. Make sure you discuss any questions you have with your health care provider. Document Revised: 08/13/2018 Document Reviewed: 08/13/2018 [employer] Patient Education ?? 2021 [employer] Tests Performed Medications and Immunizations Administered Given 0.9% NaCl bolus, 1000 mL, IV Piggyback acetaminophen, 650 mg, Oral Lab Test Name Test Result Date/Time WBC 6.9 x10^3/mcL 08/23/2022 10:09 EST RBC 3.7 x10^6/mcL 08/23/2022 10:09 EST Hgb 11.0 g/dL 08/23/2022 10:09 EST Hct 33.4 % 08/23/2022 10:09 EST MCV 90.8 08/23/2022 10:09 EST MCH 29.9 pg 08/23/2022 10:09 EST MCHC 32.9 g/dL 08/23/2022 10:09 EST RDW-CV 12.3 % 08/23/2022 10:09 EST Platelets 270 x10^3/mcL 08/23/2022 10:09 EST Segs Man 69 % 08/23/2022 10:09 EST Lymph Man 6 % 08/23/2022 10:09 EST Bibb Man 16 % 08/23/2022 10:09 EST Eos Man 8 % 08/23/2022 10:09 EST Baso Man 0 % 08/23/2022 10:09 EST Band Man 0 % 08/23/2022 10:09 EST Lymph, Atyp Man 1 % 08/23/2022 10:09 EST Abs Neut Man 4.8 x10^3/mcL 08/23/2022 10:09 EST RBC Morph Normal 08/23/2022 10:09 EST Sodium Level 141 mmol/L 08/23/2022 10:09 EST Potassium Level 4.5 mmol/L 08/23/2022 10:09 EST Chloride Level 105 mmol/L 08/23/2022 10:09 EST CO2 28 mmol/L 08/23/2022 10:09 EST Alk Phos 87 unit/L 08/23/2022 10:09 EST AST 28 unit/L 08/23/2022 10:09 EST ALT 19 unit/L 08/23/2022 10:09 EST BUN 21 mg/dL 08/23/2022 10:09 EST Glucose Level 90 mg/dL 08/23/2022 10:09 EST Creatinine Level 1.29 mg/dL 08/23/2022 10:09 EST eGFR AA 41 08/23/2022 10:09 EST eGFR Non-AA 41 08/23/2022 10:09 EST Calcium Level 9.5 mg/dL 08/23/2022 10:09 EST Protein Total 6.2 g/dL 08/23/2022 10:09 EST Albumin Level 3.1 g/dL 08/23/2022 10:09 EST Bilirubin Total 0.6 mg/dL 08/23/2022 10:09 EST Lactic Acid Lvl 0.9 mmol/L 08/23/2022 10:09 EST Lipase Level 26 unit/L 08/23/2022 10:09 EST 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
--- OUTSIDE RECORDS SUMMARY | 2023-08-07 12:42 | XMS_ITS | Continuity of Care Document ---
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 Name Role Phone Primeau Harshil BARCLAY Primary Care Physician Encounter [facility] Date(s): 11/26/22 - 11/26/[address] [address] Discharge Disposition: Home or Self Care Attending Physician: Merlyn Morris MD Admitting Physician: Merlyn Morris MD Referring Physician: Merlyn Morris MD Allergies, Adverse Reactions, Alerts Substance Reaction Severity Status Bactrim Nausea Mild Active Assessment and Plan Future Scheduled Tests Radiology* US Pelvic Complete 08/27/22 Medications Colace 100 mg oral capsule 100 mg = 1 cap, Oral, BID, PRN as needed for constipation, # 30 cap, 0 Refill(s), Pharmacy: [facility] #[facility], 165, cm, 08/23/22 9:32:00 EST, Height/Length Dosing, 61.23, kg, 08/23/22 9:32:00 EST, Weight Dosing Start Date: 08/23/22 Status: Ordered Dulcolax Laxative 5 mg oral delayed release tablet 5 mg = 1 tab, Oral, Daily, # 15 tab, 0 Refill(s), Pharmacy: [facility], 165, cm, 08/23/22 9:32:00 EST, Height/Length Dosing, 61.23, kg, 08/23/22 9:32:00 EST, Weight Dosing Start Date: 08/23/22 Stop Date: 09/07/22 Status: Ordered Tylenol 8 Hour 650 mg oral tablet, extended release 1,300 mg = 2 tab, Oral, every 8 hr, PRN as needed for fever, # 24 tab, 0 Refill(s), Pharmacy: [facility], 165, cm, 08/23/22 9:32:00 EST, Height/Length Dosing, 61.23, kg, 08/23/22 9:32:00 EST, Weight Dosing Start Date: 08/23/22 Status: Ordered Results Laboratory List Name Date .Morphology ([facility]) 11/26/22 Automated Diff 11/26/22 CBC w/ Diff 11/26/22 Lactate Dehydrogenase 11/26/22 Uric Acid 11/26/22 Urinalysis Microscopic 11/26/22 Urinalysis with Micro if Indicated and C ulture if Indicated 11/26/22 Comprehensive Metabolic Panel 11/26/22 Most recent to oldest [Reference Range]: 1 WBC [5.0-10.0 x10^3/mcL] 8.6 x10^3/mcL (11/26/22 12:21 PM) RBC [4.1-5.3 x10^6/mcL] 3.0 x10^6/mcL *LOW* (11/26/22 12:21 PM) Neutro Auto [40.0-75.0 %] 47.7 % (11/26/22 12:21 PM) Lymph Auto [20.0-50.0 %] 36.3 % (11/26/22 12:21 PM) Concho Auto [2.0-15.0 %] 11.6 % (11/26/22 12:21 PM) Basophil Auto [0.0-1.0 %] 0.3 % (11/26/22 12:21 PM) BUN [7-18 mg/dL] 12 mg/dL (11/26/22 9:10 AM) UA Color Pale Yellow (11/26/22 12:21 PM) UA WBC [0-3] 10-25 *ABN* (11/26/22 12:21 PM) Glucose Level [74-106 mg/dL] 78 mg/dL (11/26/22 9:10 AM) Potassium Level [3.5-5.1 mmol/L] 4.1 mmo l/L (11/26/22 9:10 AM) MCV [80.0-96.0] 101.0 *HI* (11/26/22 12: PM) UA Urobilinogen Normal (11/26/22 12: PM) RBC Morph Abnormal (11/26/22 12: PM) UA Bili [Negative] Negative (11/26/22 12: PM) UA Ketones Negative (11/26/22 12: PM) AST [15-37 unit/L] 28 unit/L (11/26/22 9:10 AM) ALT [14-59 unit/L] 25 unit/L (11/26/22 9:10 AM) MCHC [31.0-35.0 g/dL] 30.9 g/dL *LOW* (11/26/22 12: PM) Sodium Level [136-145 mmol/L] 140 mmol/L (11/26/22 9:10 AM) UA RBC [0-2] 3-5 (11/26/22 12: PM) UA Leuk Est 2+ *ABN* (11/26/22 12: PM) UA Nitrite Negative (11/26/22 12: PM) UA Glucose [Negative] Negative (11/26/22 12: PM) Hct [37.0-47.0 %] 30.7 % *LOW* (11/26/22 12: PM) UA Bacteria Few /HPF *ABN* (11/26/22 12: PM) Calcium Level [8.5-10.1 mg/dL] 9.6 mg/dL (11/26/22 9:10 AM) Albumin Level [3.4-5.0 g/dL] 3.0 g/dL *LOW* (11/26/22 9:10 AM) Protein Total [6.4-8.2 g/dL] 6.7 g/dL (11/26/22 9:10 AM) UA Protein Negative (11/26/22 12: PM) Poik Rare (11/26/22 12: PM) MCH [26.0-32.0 pg] 31.3 pg (11/26/22 12:21 PM) Neutro Absolute 4.1 x10^3/mcL *NA* (11/26/22 12: PM) Bilirubin Total [0.2-1.0 mg/dL] 0.4 mg/d L (11/26/22 9:10 AM) Hgb [12.0-16.0 g/dL] 9.5 g/dL *LOW* (11/26/22 12: PM) Uric Acid [2.6-6.0 mg/dL] 4.5 mg/dL (11/26/22 12:21 PM) Alk Phos [46-146 unit/L] 127 unit/L (11/26/22 9:10 AM) LDH [81-234 unit/L] 192 unit/L (11/26/22 12:21 PM) UA Blood 3+ *ABN* (11/26/22 PM) UA Mucous None Seen /HPF (11/26/22 PM) UA Spec Grav <=1.005 *NA* (11/26/22: PM) Platelets [130-450 x10^3/mcL] 227 x10^3/ mcL (11/26/22: PM) CO2 [21-32 mmol/L] 26 mmol/L (11/26/22 9:10 AM) UA Squam Epithelial [None Seen] Rare (11/26/22: PM) Macrocyte Small (11/26/22: PM) UA pH 6.5 *NA* (11/26/22: PM) eGFR Non-AA [>=60] 84 (11/26/22 9:10 AM) eGFR AA [>=60] 84 (11/26/22 9:10 AM) UA Appear Clear (11/26/22 PM) Chloride Level [98-107 mmol/L] 104 mmol/ L (11/26/22 9:10 AM) RDW-CV [11.7-17.0 %] 18.9 % *HI* (11/26/22: PM) Imm Gran Auto [0.0-0.9 %] 0.2 % (11/26/22 12: PM) UA Culture Ind?. Indicated (11/26/22 12: PM) Anisocyte Small (11/26/22: PM) Creatinine Level [0.55-1.02 mg/dL] 0.71 mg/dL (11/26/22 9:10 AM) Eos, Auto [1.0-6.0 %] 3.9 % (11/26/22 12:21 PM) UA Yeast [None Seen] Few *ABN* (11/26/22 12:21 PM) Orders for Microbiology Reports Name Date Urine Culture 11/26/22 Microbiology Reports TEST:Urine Culture STATUS:Order in Progress BODY SITE: SOURCE:Urine COLLECTED DATE/TIME:11/26/22 12:21 PM PRELIMINARY REPORT <10,000 cfu/ml Mixed Gram Positive [facility] Social History Social History Type Response Tobacco Former tobacco user Tobacco Use:. 1 Sex Female 140 yrs ago per pt Patient Care team information Care Team Personnel Name: Harshil Mosquera MD Position: No Access Member Role: Informed Provider Address: Address: [id number] [place] [address] Care Team Related Persons Name: TUTU SEPULVEDA Name: VIRA MENDEZ Address: Home [address] [place] [phone]
--- OUTSIDE RECORDS SUMMARY | 2023-08-07 12:42 | XMS_ITS | Continuity of Care Document ---
Author Name Unknown Organization [facility] Address [address] [place] [address] Care Team Providers Care Slot Supervisor Name Role Phone [facility] Primary [facility] Physician Encounter [facility] Date(s): 08/29/22 - 08/29/[address] [id number] Encounter Diagnosis Shortness of breath(Discharge Diagnosis) - 08/29/22 Abdominal ascites(Discharge Diagnosis) - 08/29/22 Abdominal mass(Discharge Diagnosis) - 08/29/22 Shortness of breath(Final) - Unspecified abdominal pain(Final) - Other termination clerk (current) drug therapy(Final) - Personal history of nicotine dependence(Final) - Discharge Disposition: Home or Self Care Attending Physician: Shruthi Ruth MD Admitting Physician: Shruthi Ruth MD Allergies, Adverse Reactions, Alerts Substance Reaction Severity Status Bactrim Nausea Mild Active Assessment and Plan Future Scheduled Tests Radiology* US Pelvic Complete 08/27/22 Medications Colace 100 mg oral capsule 100 mg = 1 cap, Oral, BID, PRN as needed for constipation, # 30 cap, 0 Refill(s), Pharmacy: [id number], 165, cm, 08/23/22 9:32:00 EST, Height/Length Dosing, 61.23, kg, 08/23/22 9:32:00 EST, Weight Dosing Start Date: 08/23/22 Status: Ordered Dulcolax Laxative 5 mg oral delayed release tablet 5 mg = 1 tab, Oral, Daily, # 15 tab, 0 Refill(s), Pharmacy: [id number], 165, cm, 08/23/22 9:32:00 EST, Height/Length Dosing, 61.23, kg, 08/23/22 9:32:00 EST, Weight Dosing Start Date: 08/23/22 Stop Date: 09/07/22 Status: Ordered Tylenol 8 Hour 650 mg oral tablet, extended release 1,300 mg = 2 tab, Oral, every 8 hr, PRN as needed for fever, # 24 tab, 0 Refill(s), Pharmacy: [id number], 165, cm, 08/23/22 9:32:00 EST, Height/Length Dosing, 61.23, kg, 08/23/22 9:32:00 EST, Weight Dosing Start Date: 08/23/22 Status: Ordered Results Laboratory List Name Date .Manual Differential ([facility]CT[facility]) 08/29/22 CBC w/ Diff 08/29/22 Comprehensive Metabolic Panel (CMP) 08/29 D-Dimer 08/29/22 NT- Pro BNP 08/29/22 Troponin-I 08/29/22 Most recent to oldest [Reference Range]: 1 WBC [5.0-10.0 x10^3/mcL] 7.9 x10^3/mcL (08/29/22 4:29 PM) RBC [4.1-5.3 x10^6/mcL] 3.8 x10^6/mcL *LOW* (08/29/22 4:29 PM) Segs Man [40-75 %] 74 % (08/29/22 4:29 PM) Lymph Man [20-50 %] 1 % *LOW* (08/29/22 4:29 PM) Stanton Man 17 % *NA* (08/29/22 4:29 PM) Eos Man 6 % *NA* (08/29/22 4:29 PM) BUN [7-18 mg/dL] 21 mg/dL *HI* (08/29/22 4:29 PM) Glucose Level [74-106 mg/dL] 99 mg/dL (08/29/22 4:29 PM) Lymph, Atyp Man 2 % *NA* (08/29/22 4:29 PM) Potassium Level [3.5-5.1 mmol/L] 4.6 mmo l/L (08/29/22 4:29 PM) MCV [80.0-96.0] 91.0 (08/29/22 4:29 PM) RBC Morph Abnormal (08/29/22 4:29 PM) AST [15-37 unit/L] 43 unit/L *HI* (08/29/22 4:29 PM) ALT [14-59 unit/L] 43 unit/L (08/29/22 4:29 PM) MCHC [31.0-35.0 g/dL] 32.5 g/dL (08/29/22 4:29 PM) Troponin-I [0.0-51.4 pg/mL] 9.1 pg/mL (08/29/22 4:29 PM) Sodium Level [136-145 mmol/L] 142 mmol/L (08/29/22 4:29 PM) Baso Stippling RBC Rare (08/29/22 4:29 PM) Hct [37.0-47.0 %] 34.2 % *LOW* (08/29/22 4:29 PM) Calcium Level [8.5-10.1 mg/dL] 10.3 mg/d L *HI* (08/29/22 4:29 PM) Albumin Level [3.4-5.0 g/dL] 3.1 g/dL *LOW* (08/29/22 4:29 PM) Protein Total [6.4-8.2 g/dL] 6.8 g/dL (08/29/22 4:29 PM) Poik Rare (08/29/22 4:29 PM) MCH [26.0-32.0 pg] 29.5 pg (08/29/22 4:29 PM) Bilirubin Total [0.2-1.0 mg/dL] 0.5 mg/d L (08/29/22 4:29 PM) Hgb [12.0-16.0 g/dL] 11.1 g/dL *LOW* (08/29/22 4:29 PM) Alk Phos [46-146 unit/L] 98 unit/L (08/29/22 4:29 PM) Band Man [0-5 %] 0 % (08/29/22 4:29 PM) Polychrom Rare (08/29/22 4:29 PM) Platelets [130-450 x10^3/mcL] 297 x10^3/ mcL (08/29/22 4:29 PM) CO2 [21-32 mmol/L] 25 mmol/L (08/29/22 4:29 PM) Macrocyte Rare (08/29/22 4:29 PM) eGFR Non-AA [>=60] 23 *LOW* (08/29/22 4:29 PM) eGFR AA [>=60] 23 *LOW* (08/29/22 4:29 PM) NT-proBNP [0-450 pg/mL] 435 pg/mL (08/29/22 4:29 PM) Chloride Level [98-107 mmol/L] 105 mmol/ L (08/29/22 4:29 PM) RDW-CV [11.7-17.0 %] 12.3 % (08/29/22 4:29 PM) [place] Cells Rare (08/29/22 4:29 PM) Ovalocytes Rare (08/29/22 4:29 PM) Abs Neut Man 5.8 x10^3/mcL *NA* (08/29/22 4:29 PM) Anisocyte Rare (08/29/22 4:29 PM) Creatinine Level [0.55-1.02 mg/dL] 2.09 mg/dL *HI* (08/29/22 4:29 PM) Baso Man [0-1 %] 0 % (08/29/22 4:29 PM) D Dimer, (Quant.) [0.00-0.50 mg/L] 6.88 mg/L *NA* (08/29/22 4:29 PM) Vital Signs Most recent to oldest [Reference Range]: 1 Temperature Temporal Artery [36-38 Deg C ] 36 Deg C (08/29/22 3:59 PM) Peripheral Pulse Rate [60-100 bpm] 73 bp m (08/29/22 3:59 PM) Respiratory Rate [12-24 br/min] 16 br/mi n (08/29/22 3:59 PM) Blood Pressure [90-140/60-90 mmHg] 137/8 4mmHg (08/29/22 3:59 PM) Weight Dosing 61.23 kg (08/29/22 4:09 PM) Weight Estimated 61.23 kg (08/29/22 3:59 PM) Height/Length Dosing 165.100 cm (08/29/22 4:09 PM) Height/Length Estimated 165.100 cm (08/29/22 3:59 PM) Social History Social History Type Response Tobacco Former tobacco user Tobacco Use:. 1 Sex Female 140 yrs ago per pt Hospital Discharge Instructions Patient Education 08/29/2022 19:40:37 Shortness of Breath, Adult Shortness of Breath, Adult Shortness of breath is when a person has trouble breathing enough air or when a person feels like she or he is having trouble breathing in enough air. Shortness of breath could be a sign of a medicalproblem. Follow these instructions at home: ??? Pay attention to any changes in your symptoms. ??? Do not use any products that contain nicotine or tobacco, such as cigarettes, e-cigarettes, andchewing tobacco. ??? Do not smoke. Smoking is a common cause of shortness of breath. If you need help quitting, ask your health care provider. ??? Avoid things that can irritate your airways, such as: ??? Mold. ??? Dust. ??? Air pollution. ??? Chemical fumes. ??? Things that can cause allergy symptoms (allergens), if you have allergies. ??? Keep your living space clean and free of mold and dust. ??? Rest as needed. Slowly return to your usual activities. ??? Take ipal-gqx-thakwzc and prescription medicines only as told by your health care provider. This includes oxygen therapy and inhaled medicines. ??? Keep all follow-up visits as told by your health care provider. This is important. Contact a health care provider if: ??? Your condition does not improve as soon as expected. ??? You have a hard time doing your normal activities, even after you rest. ??? You have new symptoms. Get help right away if: ??? Your shortness of breath gets worse. ??? You have shortness of breath when you are resting. ??? You feel light-headed or you faint. ??? You have a cough that is not controlled with medicines. ??? You cough up blood. ??? You have pain with breathing. ??? You have pain in your chest, arms, shoulders, or abdomen. ??? You have a fever. ??? You cannot walk up stairs or exercise the way that you normally do. These symptoms may represent a serious problem that is an emergency. Do not wait to see if the symptoms will go away. Get medical help right away. Call your local emergency services (911 in the [place] Do not drive yourself to the hospital. Summary ??? Shortness of breath is when a person has trouble breathing enough air. It can be a sign of a medical problem. ??? Avoid things that irritate your lungs, such as smoking, pollution, mold, and dust. ??? Pay attention to changes in your symptoms and contact your health care provider if you have a hard time completing daily activities because of shortness of breath. This information is not intended to replace advice given to you by your health care provider. Make sure you discuss any questions you have with your health care provider. Document Revised: 12/22/2018 Document Reviewed: 12/22/2018 [employer] Patient Education ?? 2021 [employer]. 08/29/2022 19:40:31 Ascites Ascites Ascites is a collection of too much fluid in the abdomen. Ascites can range from mild to severe. Ifascites is not treated, it can get worse. What are the causes? This condition may be caused by: ??? A liver condition called cirrhosis. This is the most common cause of ascites. ??? Long-term (chronic) or alcoholic hepatitis. ??? Infection or inflammation in the abdomen. ??? Cancer in the abdomen. ??? Heart failure. ??? Kidney disease. ??? Inflammation of the pancreas. ??? Clots in the veins of the liver. What are the signs or symptoms? Symptoms of this condition include: ??? A feeling of fullness in the abdomen. This is common. ??? An increase in the size of the abdomen or waist. ??? Swelling in the legs. ??? Swelling of the scrotum. ??? Difficulty breathing. ??? Pain in the abdomen. ??? Sudden weight gain. If the condition is mild, you may not have symptoms. How is this diagnosed? This condition is diagnosed based on your medical history and a physical exam. Your health care provider may order imaging tests, such as an ultrasound or CT scan of your abdomen. How is this treated? Treatment for this condition depends on the cause of the ascites. It may include: ??? Taking a pill to make you urinate. This is called a water pill (diuretic pill). ??? Strictly reducing your salt (sodium) intake. Salt can cause extra fluid to be kept (retained) in the body, and this makes ascites worse. ??? Having a procedure to remove fluid from your abdomen (paracentesis). ??? Having a procedure that connects two of the major veins within your liver and relieves pressureon your liver. This is called a TIPS procedure (transjugular intrahepatic portosystemic shunt procedure). ??? Placement of a drainage catheter (peritoneovenous shunt) to manage the extra fluid in the abdomen. Ascites may go away or improve when the condition that caused it is treated. Follow these instructions at home: Eating and drinking ??? Keep track of your weight. To do this, weigh yourself at the same time every day and write downyour weight. ??? Try not to eat salty (high-sodium) foods. ??? Follow any instructions that your health care provider gives you about how much to drink. ??? Keep track of how much you drink and any changes in how much or how often you urinate. General instructions ??? Report any changes in your health to your health care provider, especially if you develop new symptoms or your symptoms get worse. ??? Take ruos-kua-yonoetv and prescription medicines only as told by your health care provider. ??? Keep all follow-up visits. This is important. Contact a health care provider if: ??? You gain more than 3 lb (1.36 kg) in 3 days. ??? Your waist size increases. ??? You have new swelling in your legs. ??? The swelling in your legs gets worse. Get help right away if: ??? You have a fever or chills. ??? You are confused. ??? You have new or worsening breathing trouble. ??? You have new or worsening pain in your abdomen. ??? You have new or worsening swelling in the scrotum. Summary ??? Ascites is a collection of too much fluid in the abdomen. ??? Ascites may be caused by various conditions, such as cirrhosis, hepatitis, cancer, or congestive heart failure. ??? Symptoms may include swelling of the abdomen and other areas due to extra fluid in the body. ??? Treatments may involve dietary changes, medicines, or procedures. This information is not intended to replace advice given to you by your health care provider. Make sure you discuss any questions you have with your health care provider. Document Revised: 04/04/2021 Document Reviewed: 04/04/2021 [employer] Patient Education ?? 2021 [employer]. Follow Up Care 08/29/2022 15:59:27 With:Follow up with primary care provider Address: When:1 to 2 days Comments:You been seen in the emergency department and no emergent medical condition has been identified. ??It is recommended that you follow-up with your primary care provider within the next??48 hours. ??Ifyour condition worsens or you are unable to??arrange for appropriate follow-up please??reach out tothe emergency department by phone or return to the emergency department for repeat evaluation. Physician Emergency department Note * Yon Cleveland MD: PERFORM Event Display: ED Note Physician Authored Date: [id number] CRIS MENDEZ :1940 Age:82 years Sex:Female Visit Date:08/29/2022 Primary Care Physician: Harshil Mosquera MD ED Supervision/Handoff Note: Received the patient in signout from Dr. Bernal to follow-up the CT angio chest to rule out a large pulmonary embolism.?? CT angio of the chest reveals??no evidence of significant pulmonary embolism.?? Demonstrates stable ascites but clinically the patient feels that she is??worse with her shortness of breath.?? 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 Patient is 97% on room air and requires no oxygen supplementation. ??Her shortness of breath is on exertion. ??Please refer to the??daytime physician's note for complete assessment of??her respiratory status. Medical Decision Making: Vitals & Measurements T:??36?C ??(Temporal Artery)?? HR:??73??(Peripheral)?? RR:??16?? BP:??137/84?? SpO2:??97%?? HT:??165.100??cm?? WT:??61.23??kg??(Estimated)?? Pain Score:??4?? O2 Therapy:??Room air?? Procedure No Qualifying Data Lab Results CBC and Differential?? LATEST RESULTS?? HISTORICAL RESULTS?? WBC?? 08/29/22 16:29?? 7.9?? 08/23/22?? 6.9?? RBC?? 08/29/22 16:29?? 3.8 ??Low?? 08/23/22?? 3.7 ??Low?? Hgb?? 08/29/22 16:29?? 11.1 ??Low?? 08/23/22?? 11.0 ??Low?? Hct?? 08/29/22 16:29?? 34.2 ??Low?? 08/23/22?? 33.4 ??Low?? MCV?? 08/29/22 16:29?? 91.0?? 08/23/22?? 90.8?? MCH?? 08/29/22 16:29?? 29.5?? 08/23/22?? 29.9?? MCHC?? 08/29/22 16:29?? 32.5?? 08/23/22?? 32.9?? RDW-CV?? 08/29/22 16:29?? 12.3?? 08/23/22?? 12.3?? Platelets?? 08/29/22 16:29?? 297?? 08/23/22?? 270?? Segs Man?? 08/29/22 16:29?? 74?? 08/23/22?? 69?? Lymph Man?? 08/29/22 16:29?? 1 ??Low?? 08/23/22?? 6 ??Low?? Stanton Man?? 08/29/22 16:29?? 17?? 08/23/22?? 16?? Eos Man?? 08/29/22 16:29?? 6?? 08/23/22?? 8?? Baso Man?? 08/29/22 16:29?? 0?? 08/23/22?? 0?? Band Man?? 08/29/22 16:29?? 0?? 08/23/22?? 0?? Lymph, Atyp Man?? 08/29/22 16:29?? 2?? 08/23/22?? 1?? Abs Neut Man?? 08/29/22 16:29?? 5.8?? 08/23/22?? 4.8?? RBC Morph?? 08/29/22 16:29?? Abnormal?? 08/23/22?? Normal?? Anisocyte?? 08/29/22 16:29?? Rare? Baso Stippling RBC?? 08/29/22 16:29?? Rare? Maame Cells?? 08/29/22 16:29?? Rare? Macrocyte?? 08/29/22 16:29?? Rare? Ovalocytes?? 08/29/22 16:29?? Rare? Poik?? 08/29/22 16:29?? Rare? Polychrom?? 08/29/22 16:29?? Rare? Coagulation?? LATEST RESULTS?? D Dimer, (Quant.)?? 08/29/22 16:29?? 6.88? Routine Chemistry?? LATEST RESULTS?? HISTORICAL RESULTS?? Sodium Level?? 08/29/22 16:29?? 142?? 08/23/22?? 141?? Potassium Level?? 08/29/22 16:29?? 4.6?? 08/23/22?? 4.5?? Chloride Level?? 08/29/22 16:29?? 105?? 08/23/22?? 105?? CO2?? 08/29/22 16:29?? 25?? 08/23/22?? 28?? Alk Phos?? 08/29/22 16:29?? 98?? 08/23/22?? 87?? AST?? 08/29/22 16:29?? 43 ??High?? 08/23/22?? 28?? ALT?? 08/29/22 16:29?? 43?? 08/23/22?? 19?? BUN?? 08/29/22 16:29?? 21 ??High?? 08/23/22?? 21 ??High?? Glucose Level?? 08/29/22 16:29?? 99?? 08/23/22?? 90?? Creatinine Level?? 08/29/22 16:29?? 2.09 ??High?? 08/23/22?? 1.29 ??High?? eGFR AA?? 08/29/22 16:29?? 23 ??Low?? 08/23/22?? 41 ??Low?? eGFR Non-AA?? 08/29/22 16:29?? 23 ??Low?? 08/23/22?? 41 ??Low?? Calcium Level?? 08/29/22 16:29?? 10.3 ??High?? 08/23/22?? 9.5?? Protein Total?? 08/29/22 16:29?? 6.8?? 08/23/22?? 6.2 ??Low?? Albumin Level?? 08/29/22 16:29?? 3.1 ??Low?? 08/23/22?? 3.1 ??Low?? Bilirubin Total?? 08/29/22 16:29?? 0.5?? 08/23/22?? 0.6? Cardiac Isoenzymes?? LATEST RESULTS?? Troponin-I?? 08/29/22 16:29?? 9.1?? NT-proBNP?? 08/29/22 16:29?? 435? Assessment/Plan 1.??Shortness of breath??R06.02 Orders: Discharge Patient, 08/29/22 20:38:00 EST, Home Independently, Constant Indicator Electronically Signed on 08/29/22 08:39 PM Yon Cleveland MD * Shruthi Ruth MD: PERFORM Event Display: ED Note Physician Authored Date: [id number] CRIS MENDEZ :1940 Age:82 years Sex:Female Visit Date:08/29/2022 Primary Care Physician: [facility], Harshil Tucker MD Basic Information Time Seen: Shruthi Ruth MD / 08/29/2022 17:04 Chief Complaint Pt states that she has had issues with her abdomen. ??Started with some shortness of breath a couple of days ago History Of Present Illness: Patient reports that she has had issues with her abdomen??and shortness of breath since this last patient reports that she has been to the emergency department last ??she has been incontact with her primary care provider is Dr. Martinez by phone??however has not seen him??she went to see the commercial collections driver today and there will be referrals made for gynecology??as patient is said tohave cancer with fluid in her??abdomen she states??commercial collections driver recommended patient come to the emergency department??Dr. Kuo??so that she??could have an x-ray done to further check out??her shortness of breath.?? No fever no chills no ear nose or throat pain??positive chest discomfort at times that comes and goes??no nausea no vomiting??no extremity edema no skin rashes.?? Dr. Kuo's note suggest possible primary peritoneal carcinomatosis.? Review of Systems: see hpi for ros Physical Exam Vitals & Measurements T:??36?C ??(Temporal Artery)?? HR:??73??(Peripheral)?? RR:??16?? BP:??137/84?? SpO2:??97%?? HT:??165.100??cm?? WT:??61.23??kg??(Estimated)?? Pain Score:??4?? O2 Therapy:??Room air?? General: Alert and oriented, well nourished,?No??acute distress Eye: PER?Normal??conjunctiva,??No??scleral icterus HENT: Normocephalic,??nontraumatic??Normal hearing Lungs: Clear to auscultation??decreased breath sounds bilateral??bases posteriorly,?Non-labored?? respiration Heart:?Normal?? rate,?Regular??rhythm,?No??murmur,?No??gallop,?No??edema Chest: wall excursion wnl no abnormal movements no obvious deformities Musculoskeletal:?Normal?? range of motion and strength,?No??tenderness,?No??swelling Skin: Skin is warm, dry and pink,?No??rashes,?No??lesions Neurologic: Awake, alert and oriented X4 Psychiatric: Cooperative, appropriate mood and affect Medical Decision Making: For MDM please see under assessment and plan Procedure No Qualifying Data Assessment/Plan 1.??Shortness of breath??R06.02 Given patient's shortness of breath and??peritoneal carcinomatosis??positive D- dimer??a CTA is ordered??patient is given 1 L of fluids??in hopes that this will help??protect her kidneys??and patient is aware to drink plenty of fluids over the next few days.?? Signout given to Dr. Cleveland Orders: CT Angio Chest, 08/29/22 19:15:00 EST, Stat, Reason: +ddimer, sob, +ca, Transport Mode: Stretcher, Exam to be performed outside organization? Review Orders for Potential Auths., 08/29/22 17:12:24 EST Medication Reconciliation Unchanged acetaminophen (Tylenol 8 Hour 650 mg oral [...] data Medication Administration Given 0.9% NaCl bolus, 1 L, IV Bolus Allergies Bactrim??(Nausea) Social History Electronic Cigarette/Vaping Electronic Cigarette Use: Never. Tobacco Former tobacco user Tobacco Use:.- Comments: 40 yrs ago per pt Lab Results CBC and Differential?? LATEST RESULTS?? HISTORICAL RESULTS?? WBC?? 08/29/22 16:29?? 7.9?? 08/23/22?? 6.9?? RBC?? 08/29/22 16:29?? 3.8 ??Low?? 08/23/22?? 3.7 ??Low?? Hgb?? 08/29/22 16:29?? 11.1 ??Low?? 08/23/22?? 11.0 ??Low?? Hct?? 08/29/22 16:29?? 34.2 ??Low?? 08/23/22?? 33.4 ??Low?? MCV?? 08/29/22 16:29?? 91.0?? 08/23/22?? 90.8?? MCH?? 08/29/22 16:29?? 29.5?? 08/23/22?? 29.9?? MCHC?? 08/29/22 16:29?? 32.5?? 08/23/22?? 32.9?? RDW-CV?? 08/29/22 16:29?? 12.3?? 08/23/22?? 12.3?? Platelets?? 08/29/22 16:29?? 297?? 08/23/22?? 270?? Segs Man?? 08/29/22 16:29?? 74?? 08/23/22?? 69?? Lymph Man?? 08/29/22 16:29?? 1 ??Low?? 08/23/22?? 6 ??Low?? Stanton Man?? 08/29/22 16:29?? 17?? 08/23/22?? 16?? Eos Man?? 08/29/22 16:29?? 6?? 08/23/22?? 8?? Baso Man?? 08/29/22 16:29?? 0?? 08/23/22?? 0?? Band Man?? 08/29/22 16:29?? 0?? 08/23/22?? 0?? Lymph, Atyp Man?? 08/29/22 16:29?? 2?? 08/23/22?? 1?? Abs Neut Man?? 08/29/22 16:29?? 5.8?? 08/23/22?? 4.8?? RBC Morph?? 08/29/22 16:29?? Abnormal?? 08/23/22?? Normal?? Anisocyte?? 08/29/22 16:29?? Rare? Baso Stippling RBC?? 08/29/22 16:29?? Rare? Maame Cells?? 08/29/22 16:29?? Rare? Macrocyte?? 08/29/22 16:29?? Rare? Ovalocytes?? 08/29/22 16:29?? Rare? Poik?? 08/29/22 16:29?? Rare? Polychrom?? 08/29/22 16:29?? Rare? Coagulation?? LATEST RESULTS?? D Dimer, (Quant.)?? 08/29/22 16:29?? 6.88? Routine Chemistry?? LATEST RESULTS?? HISTORICAL RESULTS?? Sodium Level?? 08/29/22 16:29?? 142?? 08/23/22?? 141?? Potassium Level?? 08/29/22 16:29?? 4.6?? 08/23/22?? 4.5?? Chloride Level?? 08/29/22 16:29?? 105?? 08/23/22?? 105?? CO2?? 08/29/22 16:29?? 25?? 08/23/22?? 28?? Alk Phos?? 08/29/22 16:29?? 98?? 08/23/22?? 87?? AST?? 08/29/22 16:29?? 43 ??High?? 08/23/22?? 28?? ALT?? 08/29/22 16:29?? 43?? 08/23/22?? 19?? BUN?? 08/29/22 16:29?? 21 ??High?? 08/23/22?? 21 ??High?? Glucose Level?? 08/29/22 16:29?? 99?? 08/23/22?? 90?? Creatinine Level?? 08/29/22 16:29?? 2.09 ??High?? 08/23/22?? 1.29 ??High?? eGFR AA?? 08/29/22 16:29?? 23 ??Low?? 08/23/22?? 41 ??Low?? eGFR Non-AA?? 08/29/22 16:29?? 23 ??Low?? 08/23/22?? 41 ??Low?? Calcium Level?? 08/29/22 16:29?? 10.3 ??High?? 08/23/22?? 9.5?? Protein Total?? 08/29/22 16:29?? 6.8?? 08/23/22?? 6.2 ??Low?? Albumin Level?? 08/29/22 16:29?? 3.1 ??Low?? 08/23/22?? 3.1 ??Low?? Bilirubin Total?? 08/29/22 16:29?? 0.5?? 08/23/22?? 0.6? Cardiac Isoenzymes?? LATEST RESULTS?? Troponin-I?? 08/29/22 16:29?? 9.1?? NT-proBNP?? 08/29/22 16:29?? 435? Electronically Signed on 08/29/22 07:53 PM Shruthi Ruth MD Emergency department Discharge instructions * Yon Cleveland MD: PERFORM Event Display: ED Discharge Information Authored Date: [id number] CRIS MENDEZ :1940 Age:82 years Sex:Female Visit Date:08/29/2022 Primary Care Physician: Michelle [facility], Harshil Tucker MD Discharge Instructions We would like to thank you for allowing us to assist you with your healthcare needs. The following includes patient education materials and information regarding your injury/illness. Diagnosis from Today's Visit Shortness of breath Abdominal ascites Abdominal mass Discharge Vitals Temperature??(Temporal Artery) 96.8 ??F (36 ??C) Heart Rate??(Peripheral) 73 Respiratory Rate?? 16 Blood Pressure?? 137/84?? Height?? 65.00 in (165.100 cm) Weight??(Estimated) 135.01 lb (61.23 kg) Allergies Bactrim??(Nausea) What to Do Next You Need to Schedule the Following Appointments Follow Up with??Follow up with primary care provider When:??Within 1 to 2 days Why: You been seen in the emergency department and no emergent medical condition has been identified. ??It is recommended that you follow-up with your primary care provider within the next??48 hours.??If your condition worsens or you are unable to??arrange for appropriate follow-up please??reach out to the emergency department by phone or return to the emergency department for repeat evaluation. You were treated today on an emergency [...] How Much When Why Instructions Next Dose Unchanged acetaminophen (Tylenol 8 Hour 650 mg oral tablet, extended release) 2 tab Oral (given by mouth) Every 8 hours as needed for as needed for fever Abdominal mass Unchanged bisacodyl (Dulcolax Laxative 5 mg oral delayed release tablet) 1 tab Oral (given by mouth) Every day Abdominal mass Duration: 15 Days Unchanged docusate (Colace 100 mg oral capsule) 1 Capsules Oral (given by mouth) 2 times a day as needed for as needed for constipation Abdominal mass Education Materials Shortness of Breath, Adult Shortness of breath is when a person has trouble breathing enough air or when a person feels like she or he is having trouble breathing in enough air. Shortness of breath could be a sign of a medicalproblem. Follow these instructions at home: ? Pay attention to any changes in your symptoms. ? Do not use any products that contain nicotine or tobacco, such as cigarettes, e- cigarettes, and chewing tobacco. ? Do not smoke. Smoking is a common cause of shortness of breath. If you need help quitting, ask yourhealth care provider. ? Avoid things that can irritate your airways, such as: ? Mold. ? Dust. ? Air pollution. ? Chemical fumes. ? Things that can cause allergy symptoms (allergens), if you have allergies. ? Keep your living space clean and free of mold and dust. ? Rest as needed. Slowly return to your usual activities. ? Take knzv-rob-xqosefo and prescription medicines only as told by your health care provider. This includes oxygen therapy and inhaled medicines. ? Keep all follow-up visits as told by your health care provider. This is important. Contact a health care provider if: ? Your condition does not improve as soon as expected. ? You have a hard time doing your normal activities, even after you rest. ? You have new symptoms. Get help right away if: ? Your shortness of breath gets worse. ? You have shortness of breath when you are resting. ? You feel light-headed or you faint. ? You have a cough that is not controlled with medicines. ? You cough up blood. ? You have pain with breathing. ? You have pain in your chest, arms, shoulders, or abdomen. ? You have a fever. ? You cannot walk up stairs or exercise the way that you normally do. These symptoms may represent a serious problem that is an emergency. Do not wait to see if the symptoms will go away. Get medical help right away. Call your local emergency services (911 in the [place] Do not drive yourself to the hospital. Summary ? Shortness of breath is when a person has trouble breathing enough air. It can be a sign of a medical problem. ? Avoid things that irritate your lungs, such as smoking, pollution, mold, and dust. ? Pay attention to changes in your symptoms and contact your health care provider if you have a hard time completing daily activities because of shortness of breath. This information is not intended to replace advice given to you by your health care provider. Make sure you discuss any questions you have with your health care provider. Document Revised: 12/22/2018 Document Reviewed: 12/22/2018 [employer] Patient Education ?? 2021 [employer]. Ascites Ascites is a collection of too much fluid in the abdomen. Ascites can range from mild to severe. Ifascites is not treated, it can get worse. What are the causes? This condition may be caused by: ? A liver condition called cirrhosis. This is the most common cause of ascites. ? Long-term (chronic) or alcoholic hepatitis. ? Infection or inflammation in the abdomen. ? Cancer in the abdomen. ? Heart failure. ? Kidney disease. ? Inflammation of the pancreas. ? Clots in the veins of the liver. What are the signs or symptoms? Symptoms of this condition include: ? A feeling of fullness in the abdomen. This is common. ? An increase in the size of the abdomen or waist. ? Swelling in the legs. ? Swelling of the scrotum. ? Difficulty breathing. ? Pain in the abdomen. ? Sudden weight gain. If the condition is mild, you may not have symptoms. How is this diagnosed? This condition is diagnosed based on your medical history and a physical exam. Your health care provider may order imaging tests, such as an ultrasound or CT scan of your abdomen. How is this treated? Treatment for this condition depends on the cause of the ascites. It may include: ? Taking a pill to make you urinate. This is called a water pill (diuretic pill). ? Strictly reducing your salt (sodium) intake. Salt can cause extra fluid to be kept (retained) in the body, and this makes ascites worse. ? Having a procedure to remove fluid from your abdomen (paracentesis). ? Having a procedure that connects two of the major veins within your liver and relieves pressure on your liver. This is called a TIPS procedure (transjugular intrahepatic portosystemic shunt procedure). ? Placement of a drainage catheter (peritoneovenous shunt) to manage the extra fluid in the abdomen. Ascites may go away or improve when the condition that caused it is treated. Follow these instructions at home: Eating and drinking ? Keep track of your weight. To do this, weigh yourself at the same time every day and write down your weight. ? Try not to eat salty (high-sodium) foods. ? Follow any instructions that your health care provider gives you about how much to drink. ? Keep track of how much you drink and any changes in how much or how often you urinate. General instructions ? Report any changes in your health to your health care provider, especially if you develop new symptoms or your symptoms get worse. ? Take jvtl-swk-xvaimuu and prescription medicines only as told by your health care provider. ? Keep all follow-up visits. This is important. Contact a health care provider if: ? You gain more than 3 lb (1.36 kg) in 3 days. ? Your waist size increases. ? You have new swelling in your legs. ? The swelling in your legs gets worse. Get help right away if: ? You have a fever or chills. ? You are confused. ? You have new or worsening breathing trouble. ? You have new or worsening pain in your abdomen. ? You have new or worsening swelling in the scrotum. Summary ? Ascites is a collection of too much fluid in the abdomen. ? Ascites may be caused by various conditions, such as cirrhosis, hepatitis, cancer, or congestive heart failure. ? Symptoms may include swelling of the abdomen and other areas due to extra fluid in the body. ? Treatments may involve dietary changes, medicines, or procedures. This information is not intended to replace advice given to you by your health care provider. Make sure you discuss any questions you have with your health care provider. Document Revised: 04/04/2021 Document Reviewed: 04/04/2021 [employer] Patient Education ?? 2021 [employer] Tests Performed Medications and Immunizations Administered Given 0.9% NaCl bolus, 1 L, IV Bolus Lab Test Name Test Result Date/Time WBC 7.9 x10^3/mcL 08/29/2022 16:29 EST RBC 3.8 x10^6/mcL 08/29/2022 16:29 EST Hgb 11.1 g/dL 08/29/2022 16:29 EST Hct 34.2 % 08/29/2022 16:29 EST MCV 91.0 08/29/2022 16:29 EST MCH 29.5 pg 08/29/2022 16:29 EST MCHC 32.5 g/dL 08/29/2022 16:29 EST RDW-CV 12.3 % 08/29/2022 16:29 EST Platelets 297 x10^3/mcL 08/29/2022 16:29 EST Segs Man 74 % 08/29/2022 16:29 EST Lymph Man 1 % 08/29/2022 16:29 EST Stanton Man 17 % 08/29/2022 16:29 EST Eos Man 6 % 08/29/2022 16:29 EST Baso Man 0 % 08/29/2022 16:29 EST Band Man 0 % 08/29/2022 16:29 EST Lymph, Atyp Man 2 % 08/29/2022 16:29 EST Abs Neut Man 5.8 x10^3/mcL 08/29/2022 16:29 EST RBC Morph Abnormal 08/29/2022 16:29 EST Anisocyte Rare 08/29/2022 16:29 EST Baso Stippling RBC Rare 08/29/2022 16:29 EST [place] Cells Rare 08/29/2022 16:29 EST Macrocyte Rare 08/29/2022 16:29 EST Ovalocytes Rare 08/29/2022 16:29 EST Poik Rare 08/29/2022 16:29 EST Polychrom Rare 08/29/2022 16:29 EST D Dimer, (Quant.) 6.88 mg/L 08/29/2022 16:29 EST Sodium Level 142 mmol/L 08/29/2022 16:29 EST Potassium Level 4.6 mmol/L 08/29/2022 16:29 EST Chloride Level 105 mmol/L 08/29/2022 16:29 EST CO2 25 mmol/L 08/29/2022 16:29 EST Alk Phos 98 unit/L 08/29/2022 16:29 EST AST 43 unit/L 08/29/2022 16:29 EST ALT 43 unit/L 08/29/2022 16:29 EST BUN 21 mg/dL 08/29/2022 16:29 EST Glucose Level 99 mg/dL 08/29/2022 16:29 EST Creatinine Level 2.09 mg/dL 08/29/2022 16:29 EST eGFR AA 23 08/29/2022 16:29 EST eGFR Non-AA 08/29/2022 16:29 EST Calcium Level 10.3 mg/dL 08/29/2022 16:29 EST Protein Total 6.8 g/dL 08/29/2022 16:29 EST Albumin Level 3.1 g/dL 08/29/2022 16:29 EST Bilirubin Total 0.5 mg/dL 08/29/2022 16:29 EST Troponin-I 9.1 pg/mL 08/29/2022 16:29 EST NT-proBNP 435 pg/mL 08/29/2022 16:29 EST Patient/Diesel Automotive Technician Signature Patient Name:CRIS MENDEZ Kirk I have received this information and my questions have been answered. Patient/Diesel Automotive Technician Name: Patient/Diesel Automotive Technician Signature: Relationship to Patient: Witness Name/Signature: Date: Electronically Signed on: 08/29/2022 20:55 ESTSigned by:Yon Alston MD: PERFORM Event Display: ED Discharge Information Authored Date: [id number] CRIS MENDEZ :1940 Age:82 years Sex:Female Visit Date:08/29/2022 Primary Care Physician: Harshil Mosquera MD Discharge Instructions We would like to thank you for allowing us to assist you with your healthcare needs. The following includes patient education materials and information regarding your injury/illness. Diagnosis from Today's Visit Shortness of breath Abdominal ascites Abdominal mass Discharge Vitals Temperature??(Temporal Artery) 96.8 ??F (36 ??C) Heart Rate??(Peripheral) 73 Respiratory Rate?? 16 Blood Pressure?? 137/84?? Height?? 65.00 in (165.100 cm) Weight??(Estimated) 135.01 lb (61.23 kg) Allergies Bactrim??(Nausea) What to Do Next You Need to Schedule the Following Appointments Follow Up with??Follow up with primary care provider When:??Within 1 to 2 days Why: You been seen in the emergency department and no emergent medical condition has been identified. ??It is recommended that you follow-up with your primary care provider within the next??48 hours.??If your condition worsens or you are unable to??arrange for appropriate follow-up please??reach out to the emergency department by phone or return to the emergency department for repeat evaluation. You were treated today on an emergency [...] How Much When Why Instructions Next Dose Unchanged acetaminophen (Tylenol 8 Hour 650 mg oral tablet, extended release) 2 tab Oral (given by mouth) Every 8 hours as needed for as needed for fever Abdominal mass Unchanged bisacodyl (Dulcolax Laxative 5 mg oral delayed release tablet) 1 tab Oral (given by mouth) Every day Abdominal mass Duration: 15 Days Unchanged docusate (Colace 100 mg oral capsule) 1 Capsules Oral (given by mouth) 2 times a day as needed for as needed for constipation Abdominal mass Education Materials Shortness of Breath, Adult Shortness of breath is when a person has trouble breathing enough air or when a person feels like she or he is having trouble breathing in enough air. Shortness of breath could be a sign of a medicalproblem. Follow these instructions at home: ? Pay attention to any changes in your symptoms. ? Do not use any products that contain nicotine or tobacco, such as cigarettes, e- cigarettes, and chewing tobacco. ? Do not smoke. Smoking is a common cause of shortness of breath. If you need help quitting, ask yourhealth care provider. ? Avoid things that can irritate your airways, such as: ? Mold. ? Dust. ? Air pollution. ? Chemical fumes. ? Things that can cause allergy symptoms (allergens), if you have allergies. ? Keep your living space clean and free of mold and dust. ? Rest as needed. Slowly return to your usual activities. ? Take xoxx-fsm-mkmdtyx and prescription medicines only as told by your health care provider. This includes oxygen therapy and inhaled medicines. ? Keep all follow-up visits as told by your health care provider. This is important. Contact a health care provider if: ? Your condition does not improve as soon as expected. ? You have a hard time doing your normal activities, even after you rest. ? You have new symptoms. Get help right away if: ? Your shortness of breath gets worse. ? You have shortness of breath when you are resting. ? You feel light-headed or you faint. ? You have a cough that is not controlled with medicines. ? You cough up blood. ? You have pain with breathing. ? You have pain in your chest, arms, shoulders, or abdomen. ? You have a fever. ? You cannot walk up stairs or exercise the way that you normally do. These symptoms may represent a serious problem that is an emergency. Do not wait to see if the symptoms will go away. Get medical help right away. Call your local emergency services (911 in the [place] Do not drive yourself to the hospital. Summary ? Shortness of breath is when a person has trouble breathing enough air. It can be a sign of a medical problem. ? Avoid things that irritate your lungs, such as smoking, pollution, mold, and dust. ? Pay attention to changes in your symptoms and contact your health care provider if you have a hard time completing daily activities because of shortness of breath. This information is not intended to replace advice given to you by your health care provider. Make sure you discuss any questions you have with your health care provider. Document Revised: 12/22/2018 Document Reviewed: 12/22/2018 [employer] Patient Education ?? 2021 [employer]. Ascites Ascites is a collection of too much fluid in the abdomen. Ascites can range from mild to severe. Ifascites is not treated, it can get worse. What are the causes? This condition may be caused by: ? A liver condition called cirrhosis. This is the most common cause of ascites. ? Long-term (chronic) or alcoholic hepatitis. ? Infection or inflammation in the abdomen. ? Cancer in the abdomen. ? Heart failure. ? Kidney disease. ? Inflammation of the pancreas. ? Clots in the veins of the liver. What are the signs or symptoms? Symptoms of this condition include: ? A feeling of fullness in the abdomen. This is common. ? An increase in the size of the abdomen or waist. ? Swelling in the legs. ? Swelling of the scrotum. ? Difficulty breathing. ? Pain in the abdomen. ? Sudden weight gain. If the condition is mild, you may not have symptoms. How is this diagnosed? This condition is diagnosed based on your medical history and a physical exam. Your health care provider may order imaging tests, such as an ultrasound or CT scan of your abdomen. How is this treated? Treatment for this condition depends on the cause of the ascites. It may include: ? Taking a pill to make you urinate. This is called a water pill (diuretic pill). ? Strictly reducing your salt (sodium) intake. Salt can cause extra fluid to be kept (retained) in the body, and this makes ascites worse. ? Having a procedure to remove fluid from your abdomen (paracentesis). ? Having a procedure that connects two of the major veins within your liver and relieves pressure on your liver. This is called a TIPS procedure (transjugular intrahepatic portosystemic shunt procedure). ? Placement of a drainage catheter (peritoneovenous shunt) to manage the extra fluid in the abdomen. Ascites may go away or improve when the condition that caused it is treated. Follow these instructions at home: Eating and drinking ? Keep track of your weight. To do this, weigh yourself at the same time every day and write down your weight. ? Try not to eat salty (high-sodium) foods. ? Follow any instructions that your health care provider gives you about how much to drink. ? Keep track of how much you drink and any changes in how much or how often you urinate. General instructions ? Report any changes in your health to your health care provider, especially if you develop new symptoms or your symptoms get worse. ? Take rzif-rnq-ptxmxpe and prescription medicines only as told by your health care provider. ? Keep all follow-up visits. This is important. Contact a health care provider if: ? You gain more than 3 lb (1.36 kg) in 3 days. ? Your waist size increases. ? You have new swelling in your legs. ? The swelling in your legs gets worse. Get help right away if: ? You have a fever or chills. ? You are confused. ? You have new or worsening breathing trouble. ? You have new or worsening pain in your abdomen. ? You have new or worsening swelling in the scrotum. Summary ? Ascites is a collection of too much fluid in the abdomen. ? Ascites may be caused by various conditions, such as cirrhosis, hepatitis, cancer, or congestive heart failure. ? Symptoms may include swelling of the abdomen and other areas due to extra fluid in the body. ? Treatments may involve dietary changes, medicines, or procedures. This information is not intended to replace advice given to you by your health care provider. Make sure you discuss any questions you have with your health care provider. Document Revised: 04/04/2021 Document Reviewed: 04/04/2021 [employer] Patient Education ?? 2021 [employer]. Tests Performed Medications and Immunizations Administered Given 0.9% NaCl bolus, 1 L, IV Bolus Lab Test Name Test Result Date/Time WBC 7.9 x10^3/mcL 08/29/2022 16:29 EST RBC 3.8 x10^6/mcL 08/29/2022 16:29 EST Hgb 11.1 g/dL 08/29/2022 16:29 EST Hct 34.2 % 08/29/2022 16:29 EST MCV 91.0 08/29/2022 16:29 EST MCH 29.5 pg 08/29/2022 16:29 EST MCHC 32.5 g/dL 08/29/2022 16:29 EST RDW-CV 12.3 % 08/29/2022 16:29 EST Platelets 297 x10^3/mcL 08/29/2022 16:29 EST Segs Man 74 % 08/29/2022 16:29 EST Lymph Man 1 % 08/29/2022 16:29 EST Stanton Man 17 % 08/29/2022 16:29 EST Eos Man 6 % 08/29/2022 16:29 EST Baso Man 0 % 08/29/2022 16:29 EST Band Man 0 % 08/29/2022 16:29 EST Lymph, Atyp Man 2 % 08/29/2022 16:29 EST Abs Neut Man 5.8 x10^3/mcL 08/29/2022 16:29 EST RBC Morph Abnormal 08/29/2022 16:29 EST Anisocyte Rare 08/29/2022 16:29 EST Baso Stippling RBC Rare 08/29/2022 16:29 EST [place] Cells Rare 08/29/2022 16:29 EST Macrocyte Rare 08/29/2022 16:29 EST Ovalocytes Rare 08/29/2022 16:29 EST Poik Rare 08/29/2022 16:29 EST Polychrom Rare 08/29/2022 16:29 EST D Dimer, (Quant.) 6.88 mg/L 08/29/2022 16:29 EST Sodium Level 142 mmol/L 08/29/2022 16:29 EST Potassium Level 4.6 mmol/L 08/29/2022 16:29 EST Chloride Level 105 mmol/L 08/29/2022 16:29 EST CO2 25 mmol/L 08/29/2022 16:29 EST Alk Phos 98 unit/L 08/29/2022 16:29 EST AST 43 unit/L 08/29/2022 16:29 EST ALT 43 unit/L 08/29/2022 16:29 EST BUN 21 mg/dL 08/29/2022 16:29 EST Glucose Level 99 mg/dL 08/29/2022 16:29 EST Creatinine Level 2.09 mg/dL 08/29/2022 16:29 EST eGFR AA 23 08/29/2022 16:29 EST eGFR Non-AA 08/29/2022 16:29 EST Calcium Level 10.3 mg/dL 08/29/2022 16:29 EST Protein Total 6.8 g/dL 08/29/2022 16:29 EST Albumin Level 3.1 g/dL 08/29/2022 16:29 EST Bilirubin Total 0.5 mg/dL 08/29/2022 16:29 EST Troponin-I 9.1 pg/mL 08/29/2022 16:29 EST NT-proBNP 435 pg/mL 08/29/2022 16:29 EST Patient/Diesel Automotive Technician Signature Patient Name:CRIS MENDEZ I have received this information and my questions have been answered. Patient/Diesel Automotive Technician Name: Patient/Diesel Automotive Technician Signature: Relationship to Patient: Witness Name/Signature: Date: Electronically Signed on: 08/29/2022 20:40 ESTSigned by:JUANIS Patient Care team information Personnel Name: Harshil Mosquera MD Address: Address: [address], [place] [address]
--- OUTSIDE RECORDS SUMMARY | 2023-08-07 12:42 | XMS_ITS | Continuity of Care Document ---
Author Name Unknown Organization [facility] Address [address] [place] [address] Care Team Providers Care Surgical Device Sales Representative Name Role Phone Harshil Mosquera Primary Care Physician [facility] 08/[facility]/22 - 08/31/[address] [id number] Discharge Disposition: Home or Self Care Attending Physician: Harshil Mosquera MD Admitting Physician: Harshil Mosquera MD Referring Physician: Harshil Mosquera MD Allergies, Adverse Reactions, Alerts Substance Reaction Severity Status Bactrim Nausea Mild Active Assessment and Plan Future Appointments Future Scheduled Tests Radiology* US Pelvic Complete 08/27/22 Medications Colace 100 mg oral capsule 100 mg = 1 cap, Oral, BID, PRN as needed for constipation, # 30 cap, 0 Refill(s), Pharmacy: [facility], 165, cm, 08/23/22 9:32:00 EST, Height/Length [...] # 24 tab, 0 Refill(s), [facility]acy: [facility], 165, cm, 08/23/22 9:32:00 EST, Height/Length Dosing, 61.23, kg, 08/23/22 9:32:00 EST, Weight Dosing Start Date: 08/23/22 Status: Ordered Social History Social History Type Response Tobacco Former tobacco user Tobacco Use:. 1 Sex Female 140 yrs ago per pt Patient Care team information Personnel Name: Michelle [facility], Harshil Tucker MD Address: Address: [address] [address]- [place]
--- OUTSIDE RECORDS SUMMARY | 2023-08-07 12:43 | XMS_ITS | Continuity of Care Document ---
Author Name Unknown Organization [facility] Address [address] [place] [address] Care Team Providers Care Floor Winder Name Role Phone Harshil Mosquera Primary Care Physician Encounter [facility] Date(s): 09/10/22 - 09/10/[address] [phone] Discharge Disposition: Home or Self Care Attending [...] constipation, # 30 cap, 0 Refill(s), Pharmacy: [facility], 165, cm, 08/23/22 9:32:00 EST, Height/Length Dosing, 61.23, kg, 08/23/22 9:32:00 EST, Weight Dosing Start Date: 08/23/22 Status: Ordered Dulcolax Laxative 5 mg oral delayed release tablet 5 mg = 1 tab, Oral, Daily, # 15 tab, 0 Refill(s), Pharmacy: [facility] [address], 165, cm, 08/23/22 9:32:00 EST, Height/Length Dosing, 61.23, kg, 08/23/22 9:32:00 EST, Weight Dosing Start Date: 08/23/22 Stop Date: 09/07/22 Status: Ordered Tylenol 8 Hour 650 mg oral tablet, extended release 1,300 mg = 2 tab, Oral, every 8 hr, PRN as needed for fever, # 24 tab, 0 Refill(s), Pharmacy: [facility] [address], 165, cm, 08/23/22 9:32:00 EST, Height/Length Dosing, 61.23, kg, 08/23/22 9:32:00 EST, Weight Dosing Start Date: 08/23/22 Status: Ordered Results Laboratory List Name Date Comprehensive Metabolic Panel 09/10/22 Lactate Dehydrogenase 09/10/22 Phosphorus Level 09/10/22 Uric Acid 09/10/22 Most recent to oldest [Reference Range]: 1 BUN [7-18 mg/dL] 53 mg/dL *HI* (09/10/22 4:50 PM) Glucose Level [74-106 mg/dL] 86 mg/dL (09/10/22 4:50 PM) Potassium Level [3.5-5.1 mmol/L] 4.6 mmo l/L (09/10/22 4:50 PM) AST [15-37 unit/L] 26 unit/L (09/10/22 4:50 PM) ALT [14-59 unit/L] 15 unit/L (09/10/22 4:50 PM) Sodium Level [136-145 mmol/L] 142 mmol/L (09/10/22 4:50 PM) Calcium Level [8.5-10.1 mg/dL] 9.6 mg/dL (09/10/22 4:50 PM) Phosphorus Level [2.6-4.7 mg/dL] 5.0 mg/ dL *HI* (09/10/22 4:50 PM) Albumin Level [3.4-5.0 g/dL] 2.8 g/dL *LOW* (09/10/22 4:50 PM) Protein Total [6.4-8.2 g/dL] 6.2 g/dL *LOW* (09/10/22 4:50 PM) Bilirubin Total [0.2-1.0 mg/dL] 0.4 mg/d L (09/10/22 4:50 PM) Uric Acid [2.6-6.0 mg/dL] 15.2 mg/dL *HI* (09/10/22 4:50 PM) Alk Phos [46-146 unit/L] 93 unit/L (09/10/22 4:50 PM) LDH [81-234 unit/L] 512 unit/L *HI* (09/10/22 4:50 PM) CO2 [21-32 mmol/L] 19 mmol/L *LOW* (09/10/22 4:50 PM) eGFR Non-AA [>=60] 7 *LOW* (09/10/22 4:50 PM) eGFR AA [>=60] 7 *LOW* (09/10/22 4:50 PM) Chloride Level [98-107 mmol/L] 107 mmol/ L (09/10/22 4:50 PM) Creatinine Level [0.55-1.02 mg/dL] 5.90 mg/dL *HI* (09/10/22 4:50 PM) Social History Social History Type Response Tobacco Former tobacco user Tobacco Use:. 1 Sex Female 140 yrs ago per pt Patient Care team information Personnel Name: Michelle RAZO, Harshil Tucker MD Address: Address: [address] [address]- [place]
--- OUTSIDE RECORDS SUMMARY | 2023-08-07 12:43 | XMS_ITS | Continuity of Care Document ---
Author Name Unknown Organization [facility] Address [address] [place] [address] Care Team Providers Care Professor Of Industrial Technology Name Role Phone Primeau Harshil BARCLAY Primary Care Physician [facility] Date(s): 11/19/22 - 11/19/[address] [address] Discharge Disposition: Home or Self Care Attending [...] constipation, # 30 cap, 0 Refill(s), Pharmacy: [facility] #105, 165, cm, 08/23/22 9:32:00 EST, Height/Length Dosing, 61.23, kg, 08/23/22 9:32:00 EST, Weight Dosing Start Date: 08/23/22 Status: Ordered Dulcolax Laxative 5 mg oral delayed release tablet 5 mg = 1 tab, Oral, Daily, # 15 tab, 0 Refill(s), Pharmacy: [facility], 165, cm, 08/23/22 9:32:00 EST, Height/Length Dosing, 61.23, kg, 08/23/22 9:32:00 EST, Weight Dosing Start Date: 08/23/22 Stop Date: 09/07/22 Status: Ordered Tylenol 8 Hour 650 mg oral tablet, extended release 1,300 mg = 2 tab, Oral, every 8 hr, PRN as needed for fever, # 24 tab, 0 Refill(s), Pharmacy: [facility] #105, 165, cm, 08/23/22 9:32:00 EST, Height/Length Dosing, 61.23, kg, 08/23/22 9:32:00 EST, Weight Dosing Start Date: 08/23/22 Status: Ordered Results Laboratory List Name Date Urinalysis Microscopic 11/19/22 Urinalysis with Microscopic 11/19/22 Most recent to oldest [Reference Range]: 1 UA Color Yellow (11/19/22 9:50 AM) UA WBC [0-3] 50-100 *ABN* (11/19/22 9:50 AM) UA Urobilinogen Normal (11/19/22 9:50 AM) UA Bili [Negative] Negative (11/19/22 9:50 AM) UA Ketones Negative (11/19/22 9:50 AM) UA RBC [0-2] 0-2 (11/19/22 9:50 AM) UA Leuk Est 3+ *ABN* (11/19/22 9:50 AM) UA Nitrite Negative (11/19/22 9:50 AM) UA Glucose [Negative] Negative (11/19/22 9:50 AM) UA Bacteria Few /HPF *ABN* (11/19/22 9:50 AM) UA Protein Trace *ABN* (11/19/22 9:50 AM) UA Blood Trace *ABN* (11/19/22 9:50 AM) UA Mucous None Seen /HPF (11/19/22 9:50 AM) UA Spec Grav 1.010 *NA* (11/19/22 9:50 AM) UA Squam Epithelial [None Seen] Rare (11/19/22 9:50 AM) UA pH 6.5 *NA* (11/19/22 9:50 AM) UA Appear Hazy *ABN* (11/19/22 9:50 AM) UA Culture Ind?. Indicated (11/19/22 9:50 AM) Orders for Microbiology Reports Name Date Urine Culture 11/19/22 Microbiology Reports TEST:Urine Culture STATUS:Order in Progress BODY SITE: SOURCE:Urine, Clean Catch COLLECTED DATE/TIME:11/19/22 9:50 AM PRELIMINARY REPORT <10,000 cfu/ml Mixed Gram Positive [facility] Social History Social History Type Response Tobacco Former tobacco user Tobacco Use:. 1 Sex Female 140 yrs ago per pt Patient Care team information Care Team Personnel Name: Harshil Mosquera MD Position: No Access Member Role: Informed Provider Address: Address: [place] [address]- Care Team Related Persons Name: TUUT SEPULVEDA Name: VIRA MENDEZ Address: Home [address] [place] [phone]
--- OUTSIDE RECORDS SUMMARY | 2023-08-07 12:43 | XMS_ITS | Continuity of Care Document ---
Author Name Unknown Organization [facility] Address [address] [place] [address] Care Team Providers Care Operations Forester Name Role Phone Primeau Harshil BARCLAY Primary Care Physician Encounter [facility] Date(s): 02/08/23 - 02/08/[address] [phone] Discharge Disposition: Home or Self Care Attending [...] constipation, # 30 cap, 0 Refill(s), Pharmacy: [facility] #105, 165, cm, 08/23/22 9:32:00 EST, Height/Length Dosing, 61.23, kg, 08/23/22 9:32:00 EST, Weight Dosing Start Date: 08/23/22 Status: Ordered Dulcolax Laxative 5 mg oral delayed release tablet 5 mg = 1 tab, Oral, Daily, # 15 tab, 0 Refill(s), Pharmacy: [facility] #105, 165, cm, 08/23/22 9:32:00 EST, Height/Length Dosing, 61.23, kg, 08/23/22 9:32:00 EST, Weight Dosing Start Date: 08/23/22 Stop Date: 09/07/22 Status: Ordered Tylenol 8 Hour 650 mg oral tablet, extended release 1,300 mg = 2 tab, Oral, every 8 hr, PRN as needed for fever, # 24 tab, 0 Refill(s), Pharmacy: [facility] #105, 165, cm, 08/23/22 9:32:00 EST, Height/Length Dosing, 61.23, kg, 08/23/22 9:32:00 EST, Weight Dosing Start Date: 08/23/22 Status: Ordered Results Laboratory List Name Date CBC w/ Diff 02/08/23 Comprehensive Metabolic Panel 02/08/23 Lactate Dehydrogenase 02/08/23 Uric Acid 02/08/23 Urinalysis with Micro if Indicated and C ulture if Indicated 02/08/23 .Manual Differential ([facility]CT[facility]) 02/08/23 Most recent to oldest [Reference Range]: 1 WBC [5.0-10.0 x10^3/mcL] 6.7 x10^3/mcL (02/08/23 2:15 PM) RBC [4.1-5.3 x10^6/mcL] 3.6 x10^6/mcL *LOW* (02/08/23 2:15 PM) Segs Man [40-75 %] 75 % (02/08/23 2:15 PM) Lymph Man [20-50 %] 16 % *LOW* (02/08/23 2:15 PM) [place] Man [2-15 %] 0 % *LOW* (02/08/23 2:15 PM) Eos Man [1-6 %] 7 % *HI* (02/08/23 2:15 PM) BUN [7-18 mg/dL] 19 mg/dL *HI* (02/08/23 2:15 PM) UA Color Yellow (02/08/23 2:15 PM) Glucose Level [74-106 mg/dL] 115 mg/dL *HI* (02/08/23 2:15 PM) Potassium Level [3.5-5.1 mmol/L] 4.3 mmo l/L (02/08/23 2:15 PM) MCV [80.0-96.0 fL] 98.0 fL *HI* (02/08/23 2:15 PM) UA Urobilinogen Normal (02/08/23 2:15 PM) RBC Morph Abnormal (02/08/23 2:15 PM) UA Bili [Negative] Negative (02/08/23 2:15 PM) UA Ketones Negative (02/08/23 2:15 PM) AST [15-37 unit/L] 25 unit/L (02/08/23 2:15 PM) ALT [14-59 unit/L] 18 unit/L (02/08/23 2:15 PM) MCHC [31.0-35.0 g/dL] 32.2 g/dL (02/08/23 2:15 PM) Sodium Level [136-145 mmol/L] 143 mmol/L (02/08/23 2:15 PM) UA Leuk Est Negative (02/08/23 2:15 PM) UA Nitrite Negative (02/08/23 2:15 PM) UA Glucose [Negative] Negative (02/08/23 2:15 PM) Hct [37.0-47.0 %] 34.8 % *LOW* (02/08/23 2:15 PM) Calcium Level [8.5-10.1 mg/dL] 9.1 mg/dL (02/08/23 2:15 PM) Albumin Level [3.4-5.0 g/dL] 3.2 g/dL *LOW* (02/08/23 2:15 PM) Protein Total [6.4-8.2 g/dL] 6.4 g/dL (02/08/23 2:15 PM) UA Protein Negative (02/08/23 2:15 PM) MCH [26.0-32.0 pg] 31.5 pg (02/08/23 2:15 PM) Bilirubin Total [0.2-1.0 mg/dL] 0.5 mg/d L (02/08/23 2:15 PM) Hgb [12.0-16.0 g/dL] 11.2 g/dL *LOW* (02/08/23 2:15 PM) Uric Acid [2.6-6.0 mg/dL] 3.0 mg/dL (02/08/23 2:15 PM) Alk Phos [46-146 unit/L] 104 unit/L (02/08/23 2:15 PM) LDH [81-234 unit/L] 248 unit/L *HI* (02/08/23 2:15 PM) UA Blood Negative (02/08/23 2:15 PM) Band Man [0-5 %] 0 % (02/08/23 2:15 PM) UA Spec Grav 1.025 *NA* (02/08/23 2:15 PM) Platelets [130-450 x10^3/mcL] 141 x10^3/ mcL (02/08/23 2:15 PM) CO2 [21-32 mmol/L] 29 mmol/L (02/08/23 2:15 PM) Macrocyte Rare (02/08/23 2:15 PM) UA pH 5.0 *NA* (02/08/23 2:15 PM) eGFR Non-AA [>=60] 71 (02/08/23 2:15 PM) eGFR AA [>=60] 71 (02/08/23 2:15 PM) UA Appear Clear (02/08/23 2:15 PM) Chloride Level [98-107 mmol/L] 107 mmol/ L (02/08/23 2:15 PM) RDW-CV [11.5-14.5 %] 14.3 % (02/08/23 2:15 PM) Slide Review Man Diff (02/08/23 2:15 PM) Abs Neut Man 5.0 x10^3/mcL *NA* (02/08/23 2:15 PM) Anisocyte Rare (02/08/23 2:15 PM) Creatinine Level [0.55-1.02 mg/dL] 0.82 mg/dL (02/08/23 2:15 PM) Baso Man [0-1 %] 2 % *HI* (02/08/23 2:15 PM) Social History Social History Type Response Tobacco Former tobacco user Tobacco Use:. 1 Sex Female 140 yrs ago per pt Patient Care team information Care Team Personnel Name: Harshil Mosquera MD Position: No Access Member Role: Informed Provider Address: Address: [address] [address]- Care Team Related Persons Name: TUTU SEPULVEDA Address: Home Name: VIRA MENDEZ Address: Home [address] [place] [phone]
[2023-08-07 12:48] LABS: Absolute Basophil Count 0.01 10^3/uL (0.0-0.2); Absolute Eosinophil Count 0.24 10^3/uL (0.0-0.7); Absolute Lymphocyte Count 0.67 10^3/uL (1.2-3.4); Absolute Monocyte Count 0.56 10^3/uL (0.1-0.8); Absolute Neutrophil Count 2.03 10^3/uL (1.2-6.7); Basophils % 0.3; Eosinophils % 6.8; HCT 35.3 % (36.0-46.0); HGB 11.7 g/dL (11.2-15.7); Lymphocytes % 19.1; MCH 31.7 pg (27.0-33.0); MCHC 33.1 % (32.0-36.0); MCV 96 fL (80-95); MPV 9.9 fL (8.0-11.0); Neutrophils % 57.8; Platelet Count 142 10^3/uL (130-400); RBC 3.69 10^6/uL (3.93-5.22); RDW 13.2 % (11.7-14.6); RDW-SD 47.1 fL; WBC 3.51 10^3/uL (4.4-10.8)
[2023-08-07 12:57] LABS: ALT 26 U/L (14-59); AST 22 U/L (15-37); Albumin 3.6 g/dL (3.4-5.0); Alkaline Phosphatase 74 U/L (46-116); Anion Gap 6.2 mmol/L (3-11); BUN 19 mg/dL (7-18); Bilirubin, Total 0.7 mg/dL (0.2-1.0); CO2 31.8 mmol/L (21.0-32.0); CREATININE 0.9 mg/dL (0.55-1.02); Calcium 9.7 mg/dL (8.5-10.1); Chloride 103 mmol/L (98-107); Estimated GFR 63.04 (mL/min/1.73m2); Glucose 107 mg/dL (74-106); LDH 149 U/L (81-234); Potassium 4.7 mmol/L (3.5-5.1); Sodium 141 mmol/L (136-145); Total Protein 7.1 g/dL (6.4-8.2)
== END 2023-09-04 23:59 | disposition home or self-care (01) ==
LOC: INF 12:35
PROVIDERS: PCP Physician Assistant; Visit Provider Internal Medicine Hematology & Oncology
DX: C82.3 Follicular lymphoma grade IIIa (principal)
CPT/HCPCS: 36415; 80053; 83615; 85025

== ENCOUNTER 2023-10-16 03:47 | Outpatient (CLI) | payer MEDICARE, SELFPAY ==
[2023-10-16 10:11] LABS: Abs Immature Grans 0.02 10^3/uL (0.0-0.06); Absolute Basophil Count 0.01 10^3/uL (0.0-0.2); Absolute Eosinophil Count 0.22 10^3/uL (0.0-0.7); Absolute Lymphocyte Count 0.66 10^3/uL (1.2-3.4); Absolute Monocyte Count 0.71 10^3/uL (0.1-0.8); Absolute Neutrophil Count 3.08 10^3/uL (1.2-6.7); Basophils % 0.2; Eosinophils % 4.7; HCT 32.2 % (36.0-46.0); Immature Grans % 0.4; MCH 32.8 pg (27.0-33.0); MCHC 34.2 % (32.0-36.0); MCV 96 fL (80-95); MPV 10.1 fL (8.0-11.0); Monocytes % 15.1; Neutrophils % 65.6; Platelet Count 204 10^3/uL (130-400); RBC 3.35 10^6/uL (3.93-5.22); RDW 13.4 % (11.7-14.6); RDW-SD 47.4 fL
[2023-10-16 10:26] LABS: ALT 22 U/L (14-59); AST 19 U/L (15-37); Albumin 3.5 g/dL (3.4-5.0); Alkaline Phosphatase 72 U/L (46-116); BUN 19 mg/dL (7-18); Bilirubin, Total 0.5 mg/dL (0.2-1.0); CREATININE 0.8 mg/dL (0.55-1.02); Calcium 9.3 mg/dL (8.5-10.1); Chloride 107 mmol/L (98-107); Estimated GFR 72.61 (mL/min/1.73m2); Glucose 92 mg/dL (74-106); LDH 149 U/L (81-234); Potassium 4.2 mmol/L (3.5-5.1); Sodium 145 mmol/L (136-145); Total Protein 6.9 g/dL (6.4-8.2)
== END 2023-10-16 03:48 | disposition home or self-care (01) ==
PROVIDERS: PCP Internal Medicine; Visit Provider Nurse Practitioner Adult Health
DX: C82.3 Follicular lymphoma grade IIIa (principal)
CPT/HCPCS: 36415; 80053; 83615; 85025

== ENCOUNTER 2023-12-11 05:17 | Outpatient (CLI) | payer MEDICARE, SELFPAY ==
[2023-12-11 10:28] LABS: Abs Immature Grans 0.01 10^3/uL (0.0-0.06); Absolute Basophil Count 0.01 10^3/uL (0.0-0.2); Absolute Eosinophil Count 0.24 10^3/uL (0.0-0.7); Absolute Lymphocyte Count 0.68 10^3/uL (1.2-3.4); Absolute Monocyte Count 0.58 10^3/uL (0.1-0.8); Basophils % 0.2 %; Eosinophils % 5.4 %; HCT 34.5 % (36.0-46.0); HGB 11.6 g/dL (11.2-15.7); Immature Grans % 0.2 %; Lymphocytes % 15.4 %; MCH 32.6 pg (27.0-33.0); MCHC 33.6 % (32.0-36.0); MCV 97 fL (80-95); MPV 9.9 fL (8.0-11.0); Monocytes % 13.1 %; Neutrophils % 65.7 %; Platelet Count 199 10^3/uL (130-400); RBC 3.56 10^6/uL (3.93-5.22); RDW 12.4 % (11.7-14.6); RDW-SD 44.7 fL; WBC 4.42 10^3/uL (4.4-10.8)
[2023-12-11 10:45] LABS: ALT 23 U/L (14-59); AST 15 U/L (15-37); Albumin 3.6 g/dL (3.4-5.0); Alkaline Phosphatase 71 U/L (46-116); Anion Gap 7.7 mmol/L (3-11); BUN 17 mg/dL (7-18); Bilirubin, Total 0.7 mg/dL (0.2-1.0); CO2 30.3 mmol/L (21.0-32.0); CREATININE 0.9 mg/dL (0.55-1.02); Calcium 9.4 mg/dL (8.5-10.1); Chloride 105 mmol/L (98-107); Estimated GFR 63.04 (mL/min/1.73m2); Glucose 106 mg/dL (74-106); LDH 155 U/L (81-234); Potassium 4.4 mmol/L (3.5-5.1); Sodium 143 mmol/L (136-145); Total Protein 7.1 g/dL (6.4-8.2)
== END 2023-12-11 05:18 | disposition home or self-care (01) ==
PROVIDERS: Internal Medicine Hematology & Oncology; PCP Internal Medicine; Visit Provider Nurse Practitioner Adult Health
DX: C82.3 Follicular lymphoma grade IIIa (principal)
CPT/HCPCS: 36415; 80053; 83615; 85025

== ENCOUNTER 2024-02-12 02:06 | Outpatient (CLI) | payer MEDICARE, SELFPAY ==
[2024-02-12 10:37] LABS: Abs Immature Grans 0.01 10^3/uL (0.0-0.06); Absolute Basophil Count 0.01 10^3/uL (0.0-0.2); Absolute Eosinophil Count 0.28 10^3/uL (0.0-0.7); Absolute Monocyte Count 0.66 10^3/uL (0.1-0.8); Absolute Neutrophil Count 2.44 10^3/uL (1.2-6.7); Basophils % 0.3 %; HCT 33.7 % (36.0-46.0); HGB 11.2 g/dL (11.2-15.7); Immature Grans % 0.3 %; MCH 31.5 pg (27.0-33.0); MCHC 33.2 % (32.0-36.0); MCV 95 fL (80-95); MPV 9.9 fL (8.0-11.0); Monocytes % 16.5 %; Neutrophils % 60.9 %; Platelet Count 165 10^3/uL (130-400); RBC 3.55 10^6/uL (3.93-5.22); RDW 12.9 % (11.7-14.6); RDW-SD 45.1 fL
[2024-02-12 10:56] LABS: ALT 26 U/L (14-59); AST 19 U/L (15-37); Albumin 3.4 g/dL (3.4-5.0); Alkaline Phosphatase 77 U/L (46-116); Anion Gap 2.7 mmol/L (3-11); BUN 18 mg/dL (7-18); Bilirubin, Total 0.64 mg/dL (0.2-1.0); CO2 32.3 mmol/L (21.0-32.0); CREATININE 0.8 mg/dL (0.55-1.02); Calcium 9.3 mg/dL (8.5-10.1); Chloride 104 mmol/L (98-107); Estimated GFR 72.61 (mL/min/1.73m2); Glucose 87 mg/dL (74-106); LDH 153 U/L (81-234); Potassium 4.2 mmol/L (3.5-5.1); Sodium 139 mmol/L (136-145)
== END 2024-02-12 02:07 | disposition home or self-care (01) ==
PROVIDERS: PCP Internal Medicine; Visit Provider Nurse Practitioner Adult Health
DX: C82.3 Follicular lymphoma grade IIIa (principal)
CPT/HCPCS: 36415; 80053; 83615; 85025

== ENCOUNTER 2024-04-22 02:54 | Outpatient (CLI) | payer MEDICARE, SELFPAY ==
[2024-04-22 10:50] LABS: Abs Immature Grans 0.02 10^3/uL (0.0-0.06); Absolute Basophil Count 0.02 10^3/uL (0.0-0.2); Absolute Eosinophil Count 0.37 10^3/uL (0.0-0.7); Absolute Lymphocyte Count 0.43 10^3/uL (1.2-3.4); Absolute Neutrophil Count 3.98 10^3/uL (1.2-6.7); Basophils % 0.4 %; Eosinophils % 6.6 %; Immature Grans % 0.4 %; Lymphocytes % 7.7 %; MCH 31.3 pg (27.0-33.0); MCHC 32.4 % (32.0-36.0); MCV 97 fL (80-95); MPV 9.2 fL (8.0-11.0); Monocytes % 14.2 %; Neutrophils % 70.7 %; Platelet Count 203 10^3/uL (130-400); RBC 3.52 10^6/uL (3.93-5.22); RDW 13.2 % (11.7-14.6); RDW-SD 47.1 fL; WBC 5.62 10^3/uL (4.4-10.8)
[2024-04-22 11:05] LABS: ALT 20 U/L (14-59); AST 28 U/L (15-37); Albumin 3.4 g/dL (3.4-5.0); Alkaline Phosphatase 75 U/L (46-116); Anion Gap 6.1 mmol/L (3-11); BUN 17 mg/dL (7-18); Bilirubin, Total 0.77 mg/dL (0.2-1.0); CO2 30.9 mmol/L (21.0-32.0); Calcium 10.5 mg/dL (8.5-10.1); Chloride 104 mmol/L (98-107); Estimated GFR 55.55 (mL/min/1.73m2); Glucose 115 mg/dL (74-106); LDH 257 U/L (81-234); Potassium 4.7 mmol/L (3.5-5.1); Sodium 141 mmol/L (136-145); Total Protein 7.2 g/dL (6.4-8.2)
== END 2024-04-22 02:55 | disposition home or self-care (01) ==
PROVIDERS: PCP Internal Medicine; Visit Provider Nurse Practitioner Adult Health
DX: C82.3 Follicular lymphoma grade IIIa (principal)
CPT/HCPCS: 36415; 80053; 83615; 85025

== ENCOUNTER 2024-05-20 03:20 | Outpatient (CLI) | payer MEDICARE, SELFPAY ==
[2024-05-20 13:29] LABS: LDH 285 U/L (81-234)
== END 2024-05-20 03:21 | disposition home or self-care (01) ==
PROVIDERS: Internal Medicine Hematology & Oncology; PCP Internal Medicine; Visit Provider Nurse Practitioner Adult Health
DX: C82.3 Follicular lymphoma grade IIIa (principal)
CPT/HCPCS: 36415; 83615

== ENCOUNTER 2024-06-17 11:31 | Outpatient (CLI) | payer MEDICARE, SELFPAY ==
[2024-06-17 10:03] LABS: Abs Immature Grans 0.02 10^3/uL (0.0-0.06); Absolute Basophil Count 0.01 10^3/uL (0.0-0.2); Absolute Eosinophil Count 0.29 10^3/uL (0.0-0.7); Absolute Lymphocyte Count 0.57 10^3/uL (1.2-3.4); Absolute Monocyte Count 0.61 10^3/uL (0.1-0.8); Absolute Neutrophil Count 3.05 10^3/uL (1.2-6.7); Basophils % 0.2 %; Eosinophils % 6.4 %; HCT 33.5 % (36.0-46.0); HGB 10.8 g/dL (11.2-15.7); Immature Grans % 0.4 %; Lymphocytes % 12.5 %; MCHC 32.2 % (32.0-36.0); MCV 96 fL (80-95); MPV 9.5 fL (8.0-11.0); Monocytes % 13.4 %; Neutrophils % 67.1 %; Platelet Count 200 10^3/uL (130-400); RBC 3.48 10^6/uL (3.93-5.22); RDW 13.1 % (11.7-14.6); RDW-SD 46.4 fL; WBC 4.55 10^3/uL (4.4-10.8)
[2024-06-17 10:19] LABS: ALT 23 U/L (14-59); AST 23 U/L (15-37); Albumin 3.3 g/dL (3.4-5.0); Alkaline Phosphatase 63 U/L (46-116); Anion Gap 7.2 mmol/L (3-11); BUN 14 mg/dL (7-18); Bilirubin, Total 0.47 mg/dL (0.2-1.0); CO2 31.8 mmol/L (21.0-32.0); Calcium 10.2 mg/dL (8.5-10.1); Chloride 108 mmol/L (98-107); Estimated GFR 55.55 (mL/min/1.73m2); Glucose 93 mg/dL (74-106); LDH 282 U/L (81-234); Potassium 4.4 mmol/L (3.5-5.1); Sodium 147 mmol/L (136-145)
== END 2024-06-17 11:32 | disposition home or self-care (01) ==
LOC: LBO 11:41
PROVIDERS: PCP Internal Medicine; Visit Provider Nurse Practitioner Adult Health
DX: C82.3 Follicular lymphoma grade IIIa (principal)
CPT/HCPCS: 36415; 80053; 83615; 85025

== ENCOUNTER 2024-08-12 04:11 | Outpatient (CLI) | payer MEDICARE, SELFPAY ==
[2024-08-12 13:00] LABS: Abs Immature Grans 0.03 10^3/uL (0.0-0.06); Absolute Basophil Count 0.02 10^3/uL (0.0-0.2); Absolute Eosinophil Count 0.29 10^3/uL (0.0-0.7); Absolute Lymphocyte Count 0.79 10^3/uL (1.2-3.4); Absolute Monocyte Count 0.63 10^3/uL (0.1-0.8); Absolute Neutrophil Count 4.34 10^3/uL (1.2-6.7); Basophils % 0.3 %; Eosinophils % 4.8 %; HCT 34.3 % (36.0-46.0); HGB 11.5 g/dL (11.2-15.7); Immature Grans % 0.5 %; MCH 31.3 pg (27.0-33.0); MCHC 33.5 % (32.0-36.0); MCV 93 fL (80-95); MPV 10.4 fL (8.0-11.0); Monocytes % 10.3 %; Neutrophils % 71.1 %; Platelet Count 224 10^3/uL (130-400); RBC 3.68 10^6/uL (3.93-5.22); RDW 13.1 % (11.7-14.6); RDW-SD 44.8 fL
[2024-08-12 13:15] LABS: ALT 26 U/L (14-59); AST 24 U/L (15-37); Albumin 3.6 g/dL (3.4-5.0); Alkaline Phosphatase 74 U/L (46-116); Anion Gap 6.4 mmol/L (3-11); BUN 17 mg/dL (7-18); Bilirubin, Total 0.58 mg/dL (0.2-1.0); CO2 32.6 mmol/L (21.0-32.0); CREATININE 0.9 mg/dL (0.55-1.02); Calcium 9.9 mg/dL (8.5-10.1); Chloride 104 mmol/L (98-107); Estimated GFR 62.65 (mL/min/1.73m2); Glucose 132 mg/dL (74-106); LDH 293 U/L (81-234); Sodium 143 mmol/L (136-145); Total Protein 7.3 g/dL (6.4-8.2)
== END 2024-08-12 04:12 | disposition home or self-care (01) ==
PROVIDERS: PCP Internal Medicine; Visit Provider Nurse Practitioner Adult Health
DX: C82.3 Follicular lymphoma grade IIIa (principal)
CPT/HCPCS: 36415; 80053; 83615; 85025

== ENCOUNTER 2024-10-14 04:26 | Outpatient (CLI) | payer MEDICARE, SELFPAY ==
[2024-10-14 10:46] LABS: Abs Immature Grans 0.03 10^3/uL (0.0-0.06); Absolute Basophil Count 0.02 10^3/uL (0.0-0.2); Absolute Eosinophil Count 0.19 10^3/uL (0.0-0.7); Absolute Lymphocyte Count 0.62 10^3/uL (1.2-3.4); Absolute Monocyte Count 0.56 10^3/uL (0.1-0.8); Absolute Neutrophil Count 2.71 10^3/uL (1.2-6.7); Basophils % 0.5 %; Eosinophils % 4.6 %; HCT 36.1 % (36.0-46.0); HGB 11.8 g/dL (11.2-15.7); Immature Grans % 0.7 %; MCHC 32.7 % (32.0-36.0); MCV 95 fL (80-95); MPV 10.1 fL (8.0-11.0); Monocytes % 13.6 %; Neutrophils % 65.6 %; Platelet Count 186 10^3/uL (130-400); RBC 3.81 10^6/uL (3.93-5.22); RDW 13.2 % (11.7-14.6); RDW-SD 45.8 fL; WBC 4.13 10^3/uL (4.4-10.8)
[2024-10-14 11:07] LABS: ALT 27 U/L (14-59); AST 22 U/L (15-37); Albumin 3.6 g/dL (3.4-5.0); Alkaline Phosphatase 61 U/L (46-116); Anion Gap 5.2 mmol/L (3-11); BUN 15 mg/dL (7-18); Bilirubin, Total 0.6 mg/dL (0.2-1.0); CO2 31.8 mmol/L (21.0-32.0); CREATININE 0.9 mg/dL (0.55-1.02); Calcium 10.2 mg/dL (8.5-10.1); Chloride 106 mmol/L (98-107); Estimated GFR 62.65 (mL/min/1.73m2); Glucose 100 mg/dL (74-106); LDH 223 U/L (81-234); Potassium 4.5 mmol/L (3.5-5.1); Sodium 143 mmol/L (136-145); Total Protein 7.3 g/dL (6.4-8.2)
== END 2024-10-14 04:27 | disposition home or self-care (01) ==
LOC: LBO 04:26
PROVIDERS: PCP Internal Medicine; Visit Provider Nurse Practitioner Adult Health
DX: C82.3 Follicular lymphoma grade IIIa (principal)
CPT/HCPCS: 36415; 80053; 83615; 85025

== ENCOUNTER 2024-12-09 01:59 | Outpatient (CLI) | payer MEDICARE, SELFPAY ==
[2024-12-09 09:52] LABS: Abs Immature Grans 0.04 10^3/uL (0.0-0.06); Absolute Basophil Count 0.02 10^3/uL (0.0-0.2); Absolute Eosinophil Count 0.22 10^3/uL (0.0-0.7); Absolute Lymphocyte Count 0.69 10^3/uL (1.2-3.4); Absolute Monocyte Count 0.87 10^3/uL (0.1-0.8); Basophils % 0.4 %; Eosinophils % 4.3 %; HCT 34.4 % (36.0-46.0); HGB 11.8 g/dL (11.2-15.7); Immature Grans % 0.8 %; Lymphocytes % 13.4 %; MCH 31.6 pg (27.0-33.0); MCHC 34.3 % (32.0-36.0); MCV 92 fL (80-95); MPV 10.2 fL (8.0-11.0); Monocytes % 16.9 %; Neutrophils % 64.2 %; Platelet Count 159 10^3/uL (130-400); RBC 3.73 10^6/uL (3.93-5.22); RDW 13.1 % (11.7-14.6); WBC 5.14 10^3/uL (4.4-10.8)
[2024-12-09 10:11] LABS: ALT 24 U/L (14-59); AST 22 U/L (15-37); Albumin 3.6 g/dL (3.4-5.0); Alkaline Phosphatase 63 U/L (46-116); Anion Gap 9.7 mmol/L (3-11); BUN 19 mg/dL (7-18); Bilirubin, Total 0.9 mg/dL (0.2-1.0); CO2 28.3 mmol/L (21.0-32.0); Calcium 10.1 mg/dL (8.5-10.1); Chloride 104 mmol/L (98-107); Estimated GFR 55.21 (mL/min/1.73m2); Glucose 110 mg/dL (74-106); LDH 218 U/L (81-234); Potassium 4.1 mmol/L (3.5-5.1); Sodium 142 mmol/L (136-145)
== END 2024-12-09 02:00 | disposition home or self-care (01) ==
LOC: LBO 02:00
PROVIDERS: PCP Internal Medicine; Visit Provider Nurse Practitioner Adult Health
DX: C82.3 Follicular lymphoma grade IIIa (principal)
CPT/HCPCS: 36415; 80053; 83615; 85025

== ENCOUNTER 2025-02-03 04:17 | Outpatient (CLI) | payer MEDICARE, SELFPAY ==
[2025-02-03 09:33] LABS: Abs Immature Grans 0.02 10^3/uL (0.0-0.06); HCT 34.8 % (36.0-46.0); HGB 11.8 g/dL (11.2-15.7); Immature Grans % 0.6 %; MCH 31.7 pg (27.0-33.0); MCHC 33.9 % (32.0-36.0); MCV 94 fL (80-95); MPV 10.0 fL (8.0-11.0); Platelet Count 174 10^3/uL (130-400); RBC 3.72 10^6/uL (3.93-5.22); RDW 13.0 % (11.7-14.6); RDW-SD 44.8 fL; WBC 3.62 10^3/uL (4.4-10.8)
[2025-02-03 10:04] LABS: ALT 31 U/L (14-59); AST 24 U/L (15-37); Albumin 3.6 g/dL (3.4-5.0); Alkaline Phosphatase 59 U/L (46-116); Anion Gap 6.9 mmol/L (3-11); BUN 15 mg/dL (7-18); Bilirubin, Total 0.7 mg/dL (0.2-1.0); CO2 29.1 mmol/L (21.0-32.0); Calcium 9.8 mg/dL (8.5-10.1); Chloride 104 mmol/L (98-107); Estimated GFR 72.16 (mL/min/1.73m2); Glucose 124 mg/dL (74-106); LDH 209 U/L (81-234); Potassium 4.1 mmol/L (3.5-5.1); Sodium 140 mmol/L (136-145); Total Protein 7.2 g/dL (6.4-8.2)
== END 2025-02-03 04:18 | disposition home or self-care (01) ==
LOC: LBO 04:18
PROVIDERS: PCP Internal Medicine; Visit Provider Nurse Practitioner Adult Health
DX: C82.3 Follicular lymphoma grade IIIa (principal)
CPT/HCPCS: 36415; 80053; 83615; 85025

== ENCOUNTER 2025-03-22 16:16 | Outpatient (REF) | payer MEDICARE, SELFPAY ==
[2025-03-22 20:00] LABS: HCT 36.4 % (36.0-46.0); HGB 11.9 g/dL (11.2-15.7); MCH 30.7 pg (27.0-33.0); MCHC 32.7 % (32.0-36.0); MCV 94 fL (80-95); MPV 11.6 fL (8.0-11.0); Platelet Count 202 10^3/uL (130-400); RBC 3.88 10^6/uL (3.93-5.22); RDW 12.9 % (11.7-14.6); RDW-SD 44.2 fL; WBC 6.42 10^3/uL (4.4-10.8)
[2025-03-22 20:12] LABS: ALT 29 U/L (14-59); AST 29 U/L (15-37); Albumin 4.0 g/dL (3.4-5.0); Alkaline Phosphatase 59 U/L (46-116); Anion Gap 10.9 mmol/L (3-11); BUN 14 mg/dL (7-18); Bilirubin, Total 0.7 mg/dL (0.2-1.0); CO2 27.1 mmol/L (21.0-32.0); Calcium 10.6 mg/dL (8.5-10.1); Calculated LDL 54 mg/dL (<100); Chloride 102 mmol/L (98-107); Cholesterol 146 mg/dL (<200); Estimated GFR 62.65 (mL/min/1.73m2); Glucose 172 mg/dL (74-106); HDL Cholesterol 70 mg/dL (>or=50); Potassium 4.3 mmol/L (3.5-5.1); Sodium 140 mmol/L (136-145); Total Protein 7.9 g/dL (6.4-8.2); Triglyceride 113 mg/dL (<150); Troponin I 6 ng/L (<or=51)
== END 2025-03-22 16:17 | disposition home or self-care (01) ==
LOC: NCHCN 16:16
PROVIDERS: PCP Internal Medicine; Visit Provider Internal Medicine
DX: I10 Essential (primary) hypertension (principal)
CPT/HCPCS: 80053; 80061; 85027; 84484

== ENCOUNTER 2025-03-31 02:24 | Outpatient (CLI) | payer MEDICARE, SELFPAY ==
[2025-03-31 09:33] LABS: Abs Immature Grans 0.02 10^3/uL (0.0-0.06); HCT 35.8 % (36.0-46.0); HGB 11.9 g/dL (11.2-15.7); Immature Grans % 0.5 %; MCH 31.3 pg (27.0-33.0); MCHC 33.2 % (32.0-36.0); MCV 94 fL (80-95); MPV 10.2 fL (8.0-11.0); Platelet Count 174 10^3/uL (130-400); RBC 3.80 10^6/uL (3.93-5.22); RDW 12.9 % (11.7-14.6); RDW-SD 44.4 fL; WBC 4.18 10^3/uL (4.4-10.8)
[2025-03-31 10:01] LABS: ALT 30 U/L (14-59); AST 24 U/L (15-37); Albumin 3.8 g/dL (3.4-5.0); Alkaline Phosphatase 55 U/L (46-116); Anion Gap 5.3 mmol/L (3-11); BUN 17 mg/dL (7-18); Bilirubin, Total 0.9 mg/dL (0.2-1.0); CO2 30.7 mmol/L (21.0-32.0); Calcium 10.4 mg/dL (8.5-10.1); Chloride 103 mmol/L (98-107); Estimated GFR 72.16 (mL/min/1.73m2); Glucose 95 mg/dL (74-106); LDH 237 U/L (81-234); Potassium 4.3 mmol/L (3.5-5.1); Sodium 139 mmol/L (136-145); Total Protein 7.4 g/dL (6.4-8.2)
== END 2025-03-31 02:25 | disposition home or self-care (01) ==
LOC: LBO 02:24
PROVIDERS: PCP Internal Medicine; Visit Provider Nurse Practitioner Adult Health
DX: C82.3 Follicular lymphoma grade IIIa (principal)
CPT/HCPCS: 36415; 80053; 83615; 85025